=== PATIENT | female | born 1960 | race African-American/Black ===

== ENCOUNTER 2017-01-11 12:13 | Emergency (ER) | payer BC ==
[2017-01-11 12:19] VITALS: BP 150/80
--- NOTE | 2017-01-11 12:59 | ER Document Report ---
ED Neck/Back Problem - General Chief Complaint: Stiff Neck Stated Complaint: NECK PAIN Time seen by provider: 12:59 Notes: 56-year-old female presents to ED for some muscle spasms in her neck for week. She states she woke up 1 minute morning with a stiff neck and has not moved the neck very much due to the fact that it hurts. She says she has been trying to move at times. She has spasms now to her right shoulder. She denies any injury. She does have spasms in her back sometimes. She did take a 800 Motrin before coming to the emergency room. She is alert and oriented and very pleasant woman. When neck and back or massage patient has full range of motion of neck and shoulders. TRAVEL OUTSIDE OF THE [place] IN LAST 30 DAYS: No - HPI Patient complains to provider of: Neck Onset: Last week Where: Home Onset: Gradual Timing: Still present Quality of pain: Achy, Other - Past some Severity: Moderate Pain Level: 4 Recent injury: No Associated symptoms: Other - Muscle spasms to neck Exacerbated by: Movement of neck Relieved by: Nothing Similar symptoms previously: Yes Recently seen / treated by doctor: No - Related Data Allergies/Adverse Reactions: latex [Latex] Allergy (Unknown, Verified 01/11/17 12:16) morphine [Morphine] Allergy (Unknown, Verified 01/11/17 12:16) Past Medical History - General Information source: Patient - Social History Smoking Status: Never Smoker Chew tobacco use (# tins/day): No Frequency of alcohol use: None Drug Abuse: None Lives with: Family Family History: Arthritis, DM, Hypertension, Malignancy, Other - Kidneys. denies: CAD - CHF Patient has suicidal ideation: No Patient has homicidal ideation: No - Past Medical History Cardiac Medical History: Reports: Hx Hypercholesterolemia, Hx Hypertension Pulmonary Medical History: Reports: None EENT Medical History: Reports: None Neurological Medical History: Reports: None Endocrine Medical History: Reports: Hx Diabetes Mellitus Type 2 Renal/ Medical History: Reports: None Malignancy Medical History: Reports: None GI Medical History: Musculoskeltal Medical History: Reports Hx Arthritis, Reports Hx Muscle Spasm, Reports Hx Musculoskeletal Deformity, Reports Hx Musculoskeletal Trauma Psychiatric Medical History: Reports: None Traumatic Medical History: Reports: Hx Fractures - Legs ankles and by Infectious Medical History: Reports: None Past Surgical History: Reports: Hx Appendectomy, Hx Section, Hx Hysterectomy, Hx Orthopedic Surgery - bilateral legs, ankle, lap, Other - Retina surgery - Immunizations Immunizations up to date: Yes Review of Systems - Review of Systems Constitutional: No symptoms reported EENT: No symptoms reported Cardiovascular: No symptoms reported Respiratory: No symptoms reported Gastrointestinal: No symptoms reported Genitourinary: No symptoms reported Female Genitourinary: No symptoms reported Musculoskeletal: Muscle pain, Neck pain Skin: No symptoms reported Hematologic/Lymphatic: No symptoms reported Neurological/Psychological: No symptoms reported Physical Exam - Vital signs Vitals: Temp Pulse Resp BP Pulse Ox 98.5 F 81 21 H 150/80 H 100 01/11/17 12:17 01/11/17 12:17 01/11/17 12:17 01/11/17 12:17 01/11/17 12:17 Interpretation: Normal - General General appearance: Appears well, Alert - HEENT Head: Normocephalic, Atraumatic Eyes: Normal Pupils: PERRL Notes: Patient has stiff neck muscles to the right side of her neck as well as to her shoulder and upper back. She states that time she has muscle spasms. - Respiratory Respiratory status: No respiratory distress Chest status: Nontender Breath sounds: Normal Chest palpation: Normal - Cardiovascular Rhythm: Regular Heart sounds: Normal auscultation Murmur: No - Abdominal Inspection: Normal Distension: No distension Bowel sounds: Normal Tenderness: Nontender Organomegaly: No organomegaly - Back Back: Normal, Tender - Muscles of the neck. No: Deformity/step-off, CVA tenderness, Vertebra tenderness, Scars, Scoliosis, Wounds - Extremities General upper extremity: Normal inspection, Nontender, Normal color, Normal ROM , Normal temperature General lower extremity: Normal inspection, Nontender, Normal color, Normal ROM , Normal temperature, Normal weight bearing. No: Rogelio's sign - Neurological Neuro grossly intact: Yes Cognition: Normal Orientation: AAOx4 [place] Coma Scale Eye Opening: Spontaneous Coco Coma Scale Verbal: Oriented [place] Coma Scale Motor: Obeys Commands Coco Coma Scale Total: 15 Speech: Normal Motor strength normal: LUE, RUE, LLE, RLE Sensory: Normal - Psychological Associated symptoms: Normal affect, Normal mood - Skin Skin Temperature: Warm Skin Moisture: Dry Skin Color: Normal Course - Re-evaluation Re-evalutation: 01/11/17 13:18 We'll discharge home patient with a prescription for muscle relaxers instructions on use of ice and heat and instructions to follow-up with a masseuse to help her with her muscle tightness in tension. - Vital Signs Vital signs: Temp Pulse Resp BP Pulse Ox 98.5 F 82 21 H 150/80 H 100 01/11/17 12:33 01/11/17 12:33 01/11/17 12:33 01/11/17 12:33 01/11/17 12:33 Discharge - Discharge Clinical Impression: Neck pain, Myalgia Condition: Stable Disposition: HOME, SELF-CARE Additional Instructions: Myalagia (Muscle Pain) Myalgia is pain in the muscles. We use the word myalgia to describe muscle pain where there's no history of injury, no known muscle disease, and the muscles are normal to examination. Myalgias can be a symptom of an acute illness , such as influenza, hepatitis, or any viral illness, especially with fever. Sometimes the muscle pain comes before any other symptoms. Myalgia can also be an early symptom of inflammatory muscle disease, such as lupus. If myalgia is accompanied by an acute illness that explains the muscle pain , then no further testing needs to be done. When there's no clear reason for the pain, tests may be done to see if there's an inflammatory or other disease of the muscles. The usual treatment for myalgias is anti-inflammatory medication, such as ibuprofen. Muscle aches may be soothed with a heating pad or hot compress. If muscles remain painful for more than a few days, you'll need testing and followup. Return if a muscle becomes swollen, red, or severely painful. MUSCLE RELAXERS: Muscle relaxing medications are usually prescribed for acute muscle spasm or injury to the neck and back. They are often combined with antiinflammatory pain medication for increased relief. You may stop the muscle relaxer when the pain and stiffness have improved. Start the medication again if spasms recur. Muscle relaxers may cause drowsiness, especially with the first dose. Do not operate machinery or drive while under the effects of the medication. Most muscle relaxers last up to 24 hours. Do not combine the medication with alcohol. ICE PACKS: Apply ice packs frequently against the painful area. Many different schedules are recommended, such as "20 minutes on, 20 minutes off" or "one hour ice, two hours rest." If you need to work, you may need to go longer between ice treatments. You should plan to have the area ice packed AT LEAST one fourth of the time. The ice should be applied over the wrap, tape, or splint, or over a layer of cloth -- not directly against the skin. Some ice bags have a built-in cloth and can be put directly on the skin. WARM PACKS: After approximately two days, apply gentle heat (such as a heating pad or hot water bottle) for about 20 to 30 minutes about every two hours -- at least four times daily. Warmth and elevation will help you make a more rapid recovery , and will ease the pain considerably. Do not use HOT heat, and never apply heat for longer than 30 minutes. The continuous heat can invisibly damage skin and muscles -- even when no burn is seen on the surface. Damaged muscles can make you MORE sore. FOLLOW-UP CARE: If you have been referred to a physician for follow-up care, call the physician s office for an appointment as you were instructed or within the next two days. If you experience worsening or a significant change in your symptoms, notify the physician immediately or return to the Emergency Department at any time for re-evaluation. Prescriptions: Cyclobenzaprine HCl [Flexeril 10 mg Tablet] 10 mg PO BIDP PRN #14 tablet PRN Reason: Forms: Elevated Blood Pressure
== END 2017-01-11 13:55 | disposition home or self-care (01) ==
LOC: ER 12:13
DX: M54.2 Cervicalgia (principal); M62.838 Other muscle spasm; I10 Essential (primary) hypertension; E11.9 Type 2 diabetes mellitus without complications; Z91.040 Latex allergy status; Z88.5 Allergy status to narcotic agent
CPT/HCPCS: 99283

== ENCOUNTER → 2017-08-11 | Outpatient (CLI) | payer BC ==
--- NOTE | 2017-08-11 11:26 | WOMENS IMAGING REPORT ---
EXAM DESCRIPTION: 3D SCREENING MAMMO BILAT COMPLETED DATE/TIME: 08/11/2017 9:13 am REASON FOR STUDY: SCREENING MAMMO Z12.31 ENCNTR SCREEN MAMMOGRAM FOR MALIGNANT NEOPLASM OF JESSICA COMPARISON: 2008 - 2015 TECHNIQUE: Standard craniocaudal and mediolateral oblique views of each breast recorded using digita l acquisition and breast tomosynthesis. LIMITATIONS: None. FINDINGS: No masses, calcifications or architectural distortion. No areas of suspicion. Read with the assistance of CAD. .[facility] - R2 Cenova Version 1.3 .[facility] - R2 Cenova Version 1.3 .[facility] - R2 Cenova Version 2.4 .[facility] - R2 Cenova Version 2.4 .[facility] - R2 Guidance Adviser Version 9.2 IMPRESSION: NORMAL MAMMOGRAM. BIRADS 1. BREAST DENSITY: b. There are scattered areas of fibroglandular density. BIRAD: 1 NEGATIVE RECOMMENDATION: ROUTINE SCREENING COMMENT: The patient has been notified of the results by letter per SA requirements. Additional no tification policies are in place for contacting patient with suspicious or incomplete findings. Quality ID #225: The [employer] recommends an annual screening mammogram for women aged 40 years or over. This facility utilizes a reminder system to ensure that all patients receive reminder letters, and/or direct phone calls for appointments. This includes reminders for routine scr eening mammograms, diagnostic mammograms, or other Breast Imaging Interventions when appropriate. Th is patient will be placed in the appropriate reminder system. The [employer] (ACR) has developed recommendations for screening MRI of the breast s in certain patient populations, to be used in conjunction with mammography. Breast MRI surveillanc e may be appropriate for women with more than 20% lifetime risk of developing breast cancer as deter mined by genetic testing, significant family history of the disease, or history of mantle radiation f or Hodgkins Disease. ACR Practice Guidelines 2008. DBT Technology DBT is a type of tomographic mammography. With conventional mammography, overlapping breast tissue ma y make lesions difficult to detect, even with good compression. DBT uses an x-ray tube that rotates a round the breast, taking images at different angles. These images are then combined to create thin sl ices of the breast that the radiologist can view as a 3D reconstruction. The Atlas5D unit can perform full-field digital mammograms (2D imaging); or DBT (3D imaging); or both, in a combination mode that quickly performs both the mammogram and the tomosynthesis scan while the breast is still compressed. PQRS 6045F: Fluoroscopic imaging is not utilized for breast tomosynthesis. TECHNICAL DOCUMENTATION: FINDING NUMBER: (1) ASSESSMENT: (1) JOB ID: [id number] [employer]- All Rights Reserved
== END ==
LOC: WI 08:57
PROVIDERS: ATTEND Internal Medicine Geriatric Medicine
DX: Z12.31 Encounter for screening mammogram for malignant neoplasm of breast (principal)
CPT/HCPCS: 77063; G0202; 77067

== ENCOUNTER 2017-11-06 09:27 | Day surgery (SDC) | payer BC ==
[~2017-11-06 09:27] MED LIST: CHONDR SU A NA/HYALUR INTRAOC KIT (SURGICARE) ONE; EPINEPHRINE INJ/PF 1 MG/1 ML AMPULE ONE; KETOROLAC TROMETHAMINE 0.45% 4 DROP/0.4 ML DROPERETTE OD PRN; LIDOCAINE 1% INJ-PF (10 MG/ML) 30 ML SDV ONE
[2017-11-06] MEDS: BESIFLOXACIN HCL 0.6% OPH SUSP 5 ML BOTTLE OD PRN ×3 (09:40→10:35)
[2017-11-06] MEDS: TROPICAMIDE 1% OPH SOLN 3 ML OD PRN ×3 (09:40→10:00)
[2017-11-06] MEDS: CYCLOPENTOLATE 0.2%/PHENYLEPHRINE 1% OPH SOLN 2 ML OD PRN ×3 (09:40→10:00)
[2017-11-06] MEDS: TETRACAINE HCL 0.5% OPH SOLN 2 ML OD PRN ×3 (09:41→10:13)
[2017-11-06] MEDS ORDERED: MIDAZOLAM 2 MG/2 ML INJ ONE (10:00)
[2017-11-06] MEDS ORDERED: FENTANYL CITRATE INJ/PF 100 MCG/2 ML AMPUL ONE (10:00)
--- NOTE | 2017-11-06 21:34 | SURGICARE DISCHARGE SUMMARY E ---
[facility] Discharge Summary NAME: CHELSEA OSORIO AGE: 57Y ADMITTED: 11/06/2017 DISCHARGED: 11/06/2017 HOSPITAL COURSE: This is a 57-year-old female who underwent cataract extraction of the right eye. DIAGNOSIS: CATARACT, RIGHT EYE. She underwent surgery because she was having difficulty with glare from headlights. DISCHARGE INSTRUCTIONS: She should be on a regular diet. No bending at her waist, no heavy lifting. She should use Besivance, Ilevro, and Durezol at 3 p.m. and 8 p.m. and sleep with a rigid shield. I will see her for her 1 day postoperative tomorrow. DICTATING PHYSICIAN: AARON MAYORGA M.D. [id number] Y#: [id number] ID: [id number] JOB#: [id number] ACCT: [id number] cc:AARON MAYORGA M.D. >
--- NOTE | 2017-11-06 21:34 | [facility]ICARE OPERATIVE REPORT E ---
[facility] Operative Report NAME: CHELSEA OSORIO AGE: 57Y DATE OF SURGERY: 11/06/2017 ROOM: PREOPERATIVE DIAGNOSIS: CATARACT, RIGHT EYE. POSTOPERATIVE DIAGNOSIS: CATARACT, RIGHT EYE. OPERATION: Cataract extraction with intraocular lens implant of the right eye. SURGEON: AARON MAYORGA M.D. ANESTHESIA: Topical. PROCEDURE: After obtaining appropriate consent, the patient's right eye was prepped and draped in sterile fashion as well as the surgeon in a sterile manner and cataract surgery was started. First a paracentesis blade was used to make a small side-port incision. Viscoelastic was used to inflate the anterior chamber. Next a 2.4 mm incision was made with the paracentesis blade. A continuous capsulorrhexis incision was made using a cystotome and Utrata forceps. Following this hydrodissection was carried out to make the lens fully loose and mobile and it was rotated 90 degrees. Following this, a mrdktt-sym-olbvgcl technique was used to phacoemulsify the lens with a CDE of 7.25. The remaining cortex was removed with irrigation/aspiration. Provisc was instilled into the capsular bag to inflate the bag. A SN60WF, 20.0 diopter lens was placed. The remaining viscoelastic material was removed with irrigation/aspiration. Following this, a 10-0 nylon suture was used to close the incision and it was found to be watertight. Vigamox was instilled in the eye and a protective shield was placed over the eye. The patient returned to the postoperative recovery in stable condition. DICTATING PHYSICIAN: AARON MAYORGA M.D. [id number] PHY#: [id number] ID: [id number] JOB#: [id number] ACCT: [id number] cc:AARON MAYORGA M.D. >
== END 2017-11-06 11:16 | disposition home or self-care (01) ==
LOC: SC 09:27
PROVIDERS: ATTEND Internal Medicine
PROC: 08RJ3JZ Replacement of Right Lens with Synthetic Substitute, Percutaneous Approach (ICD-10-PCS; principal; 2017-11-06 10:00)
DX: H25.13 Age-related nuclear cataract, bilateral (principal); I10 Essential (primary) hypertension; K21.9 Gastro-esophageal reflux disease without esophagitis; E66.9 Obesity, unspecified; Z79.899 Other long term (current) drug therapy; Z68.31 Body mass index [BMI] 31.0-31.9, adult; Z79.82 Long term (current) use of aspirin
CPT/HCPCS: 66984; 82962; V2632; J2250; J3490 ×2; J0171; J3010; 142

== ENCOUNTER → 2018-08-13 | Outpatient (CLI) | payer BC ==
--- NOTE | 2018-08-13 10:10 | WOMENS IMAGING REPORT ---
EXAM DESCRIPTION: 3D SCREENING MAMMO BILAT COMPLETED DATE/TIME: 08/13/2018 9:35 am REASON FOR STUDY: BILATERAL SCREENING MAMMO 3D/Z12.31 Z12.31 ENCNTR SCREEN MAMMOGRAM FOR MALIGNANT NEOPLASM OF JESSICA COMPARISON: [id number] TECHNIQUE: Standard craniocaudal and mediolateral oblique views of each breast recorded using digita l acquisition and breast tomosynthesis. LIMITATIONS: None. FINDINGS: No masses, calcifications or architectural distortion. No areas of suspicion. Read with the assistance of CAD. .[facility] - R2 Cenova Version 1.3 .[facility] Imaging - R2 Cenova Version 1.3 .[facility] Imaging - R2 Cenova Version 2.4 .[facility] - R2 Cenova Version 2.4 .[facility] - R2 Obstetrics/Gynecology Nurse Version 9.2 IMPRESSION: NORMAL MAMMOGRAM. BIRADS 1. BREAST DENSITY: a. The breasts are almost entirely fatty. BIRAD: 1 NEGATIVE RECOMMENDATION: ROUTINE SCREENING COMMENT: The patient has been notified of the results by letter per SA requirements. Additional no tification policies are in place for contacting patient with suspicious or incomplete findings. Quality ID #225: The [employer] [place] [employer] [employer] recommends an annual screening mammogram for women aged 40 years or over. This facility utilizes a reminder system to ensure that all patients receive reminder letters, and/or direct phone calls for appointments. This includes reminders for routine scr eening mammograms, diagnostic mammograms, or other Breast Imaging Interventions when appropriate. Th is patient will be placed in the appropriate reminder system. The [place] [employer] (ACR) has developed recommendations for screening MRI of the breast s in certain patient populations, to be used in conjunction with mammography. Breast MRI surveillanc e may be appropriate for women with more than 20% lifetime risk of developing breast cancer as deter mined by genetic testing, significant family history of the disease, or history of mantle radiation f or Hodgkins Disease. ACR Practice Guidelines 2008. DBT Technology DBT is a type of tomographic mammography. With conventional mammography, overlapping breast tissue ma y make lesions difficult to detect, even with good compression. DBT uses an x-ray tube that rotates a round the breast, taking images at different angles. These images are then combined to create thin sl ices of the breast that the radiologist can view as a 3D reconstruction. The [employer] unit can perform full-field digital mammograms (2D imaging); or DBT (3D imaging); or both, in a combination mode that quickly performs both the mammogram and the tomosynthesis scan while the breast is still compressed. PQRS 6045F: Fluoroscopic imaging is not utilized for breast tomosynthesis. TECHNICAL DOCUMENTATION: FINDING NUMBER: (1) ASSESSMENT: (1) JOB ID: [id number] [employer]- All Rights Reserved Reading location - IP/workstation name: [email or web address]
== END ==
LOC: WI 08:56
PROVIDERS: ATTEND Internal Medicine Geriatric Medicine
DX: Z12.31 Encounter for screening mammogram for malignant neoplasm of breast (principal)
CPT/HCPCS: 77063; 77067

== ENCOUNTER → 2019-08-16 | Outpatient (CLI) | payer BC ==
--- NOTE | 2019-08-16 11:16 | WOMENS IMAGING REPORT ---
EXAM DESCRIPTION: 3D SCREENING MAMMO BILAT COMPLETED DATE/TIME: 08/16/2019 9:17 am REASON FOR STUDY: Z12.31 SCREENING MAMMO Z12.31 ENCNTR SCREEN MAMMOGRAM FOR MALIGNANT NEOPLASM OF B RE COMPARISON: [id number] EXAM PARAMETERS: Views: Standard craniocaudal and mediolateral oblique views of each breast recorded using digital acquisition and breast tomosynthesis. Read with the assistance of CAD. .[facility] - R2 Heel Attacher Version 9.2 LIMITATIONS: None. FINDINGS: No suspicious masses, suspicious calcifications or architectural distortion. No areas of c oncern. IMPRESSION: NEGATIVE MAMMOGRAM. BIRADS 1. BREAST DENSITY: b. There are scattered areas of fibroglandular density. BIRAD: ASSESSMENT: 1 NEGATIVE RECOMMENDATION: ROUTINE SCREENING COMMENT: The patient has been notified of the results by letter per MQSA requirements. Additional no tification policies are in place for contacting patient with suspicious or incomplete findings. Quality ID #225: The [employer] recommends an annual screening mammogram for women aged 40 years or over. This facility utilizes a reminder system to ensure that all patients receive reminder letters, and/or direct phone calls for appointments. This includes reminders for routine scr eening mammograms, diagnostic mammograms, or other Breast Imaging Interventions when appropriate. Th is patient will be placed in the appropriate reminder system. TECHNICAL DOCUMENTATION: FINDING NUMBER: (1) ASSESSMENT: (1) JOB ID: [id number] [employer]- All Rights Reserved Reading location - IP/workstation name: [email or web address]
== END ==
LOC: WI 09:00
PROVIDERS: ATTEND Internal Medicine Geriatric Medicine
DX: Z12.31 Encounter for screening mammogram for malignant neoplasm of breast (principal)
CPT/HCPCS: 77063; 77067

== ENCOUNTER → 2020-03-07 | Outpatient (CLI) | payer BC ==
--- NOTE | 2020-03-07 13:01 | RADIOLOGY REPORT (SQ) ---
EXAM DESCRIPTION: NM GASTRIC EMPTYING STUDY IMAGES COMPLETED DATE/TIME: 03/07/2020 12:11 pm REASON FOR STUDY: GASTROPARESIS (K31.84) K31.84 GASTROPARESIS COMPARISON: None. RADIONUCLIDE AND DOSE: 2 millicuries Tc-99m Sulfur Colloid. A wide variety of solid foods have been used. The route of agent administration: Oral. TECHNIQUE: 1 minute serial static imaging performed at time of meal, 1 hour, 2 hours, 3 hours, and 4 hours as needed. Once stomach reaches 90% emptying, the test is complete. Image intensity values pl otted with respect to time with linear regression algorithm. LIMITATIONS: None. FINDINGS: Patient was observed for 4 hours. Immediate post meal serves as baseline. Gastric emptying at 30 minutes was 10.4%. Gastric emptying at 60 minutes was 20.8% Gastric emptying at 90 minutes was 31.1%. Gastric emptying at 120 minutes was 41.5%. Gastric emptying at 240 minutes was 83%. Normal values: 60 minutes: 30-90% retained. If less than 30%, abnormally rapid emptying. If greater than 90%, delaye d gastric emptying. 120 minutes: <60% retained. If greater than 60%, delayed gastric emptying. 240 minutes: <10% retained. If greater than 10%, delayed gastric emptying. IMPRESSION: Delayed gastric emptying. TECHNICAL DOCUMENTATION: JOB ID: [id number] 2010 [employer]- All Rights Reserved rev-02/27 Reading location - IP/workstation name: [email or web address]
== END ==
LOC: RAD 07:21
PROVIDERS: ATTEND Internal Medicine Gastroenterology
DX: K31.84 Gastroparesis (principal)
CPT/HCPCS: 78264; A9541

== ENCOUNTER 2020-08-23 10:24 | Emergency (ER) | payer BC ==
--- NOTE | 2020-08-23 11:28 | ER Document Report ---
ED Medical Screen (RME) - General Chief Complaint: Dizziness Stated Complaint: BLOOD PRESSURE PROBLEM Time Seen by Provider: 08/23/20 11:24 Primary Care Provider: BERTA CORREA MD [Primary Care Provider] - Follow up as needed Mode of Arrival: Wheelchair Information source: Patient Notes: 60-year-old female presents to ED for dizziness. She did have a bulging eardrum on her last doctor visit. She went back to the doctor today the bulging eardrum was better but she had a very elevated blood pressure. She states she was also dizzy. She states she is been dizzy about a week. She states she is taking all the one of her antibiotics states she has not yet seen an ENT. Will get blood urine chest x-ray and EKG. 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 Also get an Accu-Chek. States her CABG was in the end of December 09, 2019. I have greeted and performed a rapid initial assessment of this patient. A comprehensive ED assessment and evaluation of the patient, analysis of test results and completion of medical decision making process will be conducted by an additional ED providers. TRAVEL OUTSIDE OF THE [place] IN LAST 30 DAYS: No - Related Data Allergies/Adverse Reactions: morphine [Morphine] Allergy (Intermediate, Verified 08/23/20 11:19) AGITIATION latex [Latex] Allergy (Unknown, Verified 08/23/20 11:19) Past Medical History - Past Medical History Cardiac Medical History: Reports: Hx Hypercholesterolemia, Hx Hypertension Denies: Hx Heart Attack Pulmonary Medical History: Denies: Hx Asthma Neurological Medical History: Denies: Hx Cerebrovascular Accident, Hx Seizures Endocrine Medical History: Reports: Hx Diabetes Mellitus Type 2 Renal/ Medical History: Denies: Hx Peritoneal Dialysis GI Medical History: Denies: Hx Hepatitis, Hx Hiatal Hernia, Hx Ulcer Musculoskeltal Medical History: Reports Hx Arthritis, Reports Hx Muscle Spasm, Reports Hx Musculoskeletal Deformity, Reports Hx Musculoskeletal Trauma Traumatic Medical History: Reports: Hx Fractures - Legs ankles and by Infectious Medical History: Denies: Hx Hepatitis Past Surgical History: Reports: Hx Appendectomy, Hx Section, Hx Hysterectomy, Hx Orthopedic Surgery - bilateral legs, ankle, lap, Other - Retina surgery. Denies: Hx Mastectomy, Hx Open Heart Surgery, Hx Pacemaker - Immunizations Immunizations up to date: Yes Physical Exam - Vital signs Vitals: Temp Pulse Resp BP Pulse Ox 98.0 F 72 20 182/83 H 100 08/23/20 10:39 08/23/20 10:39 08/23/20 10:39 08/23/20 10:39 08/23/20 10:39 Course - Vital Signs Vital signs: Temp Pulse Resp BP Pulse Ox 98.0 F 72 20 182/83 H 100 08/23/20 10:39 08/23/20 10:39 08/23/20 10:39 08/23/20 10:39 08/23/20 10:39 Doctor's Discharge - Discharge Referrals: BERTA CORREA MD [Primary Care Provider] - Follow up as needed
[2020-08-23 11:57] LABS: ABSOLUTE BASOPHILS # (AUTO) 0.1 10^3/uL (0.0-0.2); ABSOLUTE EOSINOPHILS # (AUTO) 0.3 10^3/uL (0.0-0.6); ABSOLUTE LYMPHOCYTES (AUTO) 2.8 10^3/uL (0.5-4.7); ABSOLUTE MONOCYTES (AUTO) 0.6 10^3/uL (0.1-1.4); ABSOLUTE NEUT (AUTO) 5.4 10^3/uL (1.7-8.2); BASOPHILS % (AUTO) 0.7 % (0-2); EOSINOPHILS % (AUTO) 2.8 % (0-6); HEMOGLOBIN 12.8 g/dL (12.0-15.5); LYMPHOCYTES % (AUTO) 30.3 % (13-45); MEAN CORPUSCULAR HEMOGLOBIN 28.6 pg (27.0-33.4); MEAN CORPUSCULAR HGB CONC 34.7 g/dL (32.0-36.0); MEAN CORPUSCULAR VOLUME 83 fl (80-97); MONOCYTES % (AUTO) 6.9 % (3-13); PLATELET COUNT 304 10^3/uL (150-450); RED BLOOD COUNT 4.48 10^6/uL (3.72-5.28); SEGMENTED NEUTROPHILS % (AUTO) 59.3 % (42-78); TOTAL CELLS COUNTED % (AUTO) 100 %; WHITE BLOOD COUNT 9.2 10^3/uL (4.0-10.5)
[2020-08-23 12:18] LABS: ALBUMIN 3.8 g/dL (3.5-5.0); ALKALINE PHOSPHATASE 472 U/L (38-126); ANION GAP 8 (5-19); ASPARTATE AMINO TRANSFERASE 79 U/L (14-36); BILIRUBIN,DIRECT 0.1 mg/dL (0.0-0.4); BILIRUBIN,TOTAL 0.5 mg/dL (0.2-1.3); BLOOD UREA NITROGEN 14 mg/dL (7-20); CALCIUM 9.8 mg/dL (8.4-10.2); CARBON DIOXIDE 31 mmol/L (22-30); CHLORIDE 104 mmol/L (98-107); GLUCOSE 77 mg/dL (75-110); POTASSIUM 5.1 mmol/L (3.6-5.0); TOTAL PROTEIN 6.5 g/dL (6.3-8.2)
--- NOTE | 2020-08-23 12:56 | RADIOLOGY REPORT (SQ) ---
EXAM DESCRIPTION: CHEST 2 VIEWS IMAGES COMPLETED DATE/TIME: 08/23/2020 12:31 pm REASON FOR STUDY: Dizziness COMPARISON: 03/04/2013 EXAM PARAMETERS: NUMBER OF VIEWS: two views TECHNIQUE: Digital Frontal and Lateral radiographic views of the chest acquired. RADIATION DOSE: NA LIMITATIONS: none FINDINGS: LUNGS AND PLEURA: No opacities, masses or pneumothorax. No pleural effusion. MEDIASTINUM AND HILAR STRUCTURES: No masses or contour abnormalities. HEART AND VASCULAR STRUCTURES: Heart normal size. No evidence for failure. BONES: No acute findings. HARDWARE: Sternotomy wires are in place. OTHER: No other significant finding. IMPRESSION: NO ACUTE RADIOGRAPHIC FINDING IN THE CHEST. TECHNICAL DOCUMENTATION: JOB ID: [id number] 2010 [employer]- All Rights Reserved Reading location - IP/workstation name: [email or web address]
--- NOTE | 2020-08-23 13:42 | ER Document Report ---
ED General - General Chief Complaint: Dizziness Stated Complaint: BLOOD PRESSURE PROBLEM Time Seen by Provider: 08/23/20 11:24 Primary Care Provider: BERTA CORREA MD [Primary Care Provider] - Follow up as needed Mode of Arrival: Wheelchair TRAVEL OUTSIDE OF THE [place] IN LAST 30 DAYS: No - HPI Notes: 60-year-old female presents with dizziness ongoing for the past week. Patient states she was recently diagnosed with an ear infection, she was started on Augmentin, today's last day of her antibiotic. She went back to the PCP for follow-up, she was told that the ear infection had improved, however she was hypertensive. Patient states her blood pressure was 196/93 and then a repeat it was in the 180s, therefore she was sent to the emergency department also given the fact she has had dizziness. Patient states that she has been having dizzine ss for 1 week, is mostly when she attempts to get up and stand or walk. Patient states that she has had several episodes where she has started to fall to the right side. She is always able to catch herself or her catcher, she has not had a fall. She states she has had vertigo in the past and this is definitely a different sensation. No known history of stroke. She has intermittently had headaches as well. Last episode of dizziness was this morning. Also a few days ago had a transient episode of left hand numbness. Patient is currently feeling well. She reports compliance with her antihypertensive. 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 She takes 81 mg aspirin daily, no other blood thinners. - Related Data Allergies/Adverse Reactions: morphine [Morphine] Allergy (Intermediate, Verified 08/23/20 11:19) AGITIATION latex [Latex] Allergy (Unknown, Verified 08/23/20 11:19) Home Medications: amox. tresiba. trulicity. dorzolamide. dorzol/timol. b-d rony. metoprolol Past Medical History - General Information source: Patient - Social History Smoking Status: Never Smoker Chew tobacco use (# tins/day): No Frequency of alcohol use: None Family History: Arthritis, DM, Hypertension, Malignancy, Other Patient has homicidal ideation: No - Past Medical History Cardiac Medical History: Reports: Hx Hypercholesterolemia, Hx Hypertension Denies: Hx Heart Attack Pulmonary Medical History: Denies: Hx Asthma Neurological Medical History: Denies: Hx Cerebrovascular Accident, Hx Seizures Endocrine Medical History: Reports: Hx Diabetes Mellitus Type 2 Renal/ Medical History: Denies: Hx Peritoneal Dialysis GI Medical History: Denies: Hx Hepatitis, Hx Hiatal Hernia, Hx Ulcer Musculoskeletal Medical History: Reports Hx Arthritis, Reports Hx Muscle Spasm, Reports Hx Musculoskeletal Deformity, Reports Hx Musculoskeletal Trauma Traumatic Medical History: Reports: Hx Fractures - Legs ankles and by Infectious Medical History: Denies: Hx Hepatitis Past Surgical History: Reports: Hx Appendectomy, Hx Section, Hx Hysterectomy, Hx Orthopedic Surgery - bilateral legs, ankle, lap, Other - Retina surgery. Denies: Hx Mastectomy, Hx Open Heart Surgery, Hx Pacemaker - Immunizations Immunizations up to date: Yes Review of Systems - Review of Systems Constitutional: denies: Fever EENT: denies: Blurred vision Cardiovascular: denies: Chest pain Respiratory: denies: Short of breath Gastrointestinal: No symptoms reported Genitourinary: No symptoms reported Female Genitourinary: No symptoms reported Musculoskeletal: No symptoms reported Skin: No symptoms reported Hematologic/Lymphatic: No symptoms reported Neurological/Psychological: See HPI Physical Exam - Vital signs Vitals: Temp Pulse Resp BP Pulse Ox 98.0 F 72 20 182/83 H 100 08/23/20 10:39 08/23/20 10:39 08/23/20 10:39 08/23/20 10:39 08/23/20 10:39 - General General appearance: Appears well, Alert In distress: None - HEENT Head: Normocephalic, Atraumatic Extraocular movements intact: Yes Pupils: PERRL Tympanic membrane: Other - There is some opacification of the right TM, no eryt nafisa or bulging Mucous membranes: Moist Neck: Supple - Respiratory Breath sounds: Normal - Cardiovascular Rhythm: Regular Heart sounds: Normal auscultation - Abdominal Tenderness: Nontender - Extremities General upper extremity: Normal ROM General lower extremity: Normal ROM. No: Edema - Neurological Neuro grossly intact: Yes Cognition: Normal Orientation: AAOx4 Notes: Face is symmetric and speech is clear, tongue protrudes midline, cranial nerves II through XII grossly intact. Strength is 5/5 in the upper extremities, no pronator drift bilaterally. Strength is 5/5 in the lower extremities, no drift bilaterally. Coordination is grossly intact. Sensation is intact to all extremities. NIHSS 0 - Psychological Associated symptoms: Normal affect - Skin Skin Temperature: Warm Course - Re-evaluation Re-evalutation: 60-year-old female here with dizziness x1 week. Patient recently diagnosed with an ear infection, has essentially completed a course of Augmentin. Seen by her primary care doctor today for follow-up and was noted to be hypertensive, also reference dizziness. Has had episodes of dizziness when standing or attempting to stand, states she will fall to the right side each time, had a brief episode a few days ago of left hand numbness. She currently is neurologically intact, no focal deficits, NIHSS 0. Has risk factors for CVA, have ordered CT head to evaluate for subacute infarct. Discussed with patient possibly could related to her ear infection given the temporal relationship of these symptoms. Hypertensive, history of this, voices no other cardiopulmonary complaints. 08/23/20 14:58 CT head regular for no acute finding, have ordered MRI to get a better look at the posterior elements of brain 08/23/20 15:12 Patient updated on plan for MRI, she continues to be well-appearing and without complaints, neurologically intact 08/23/20 16:50 MRI is negative for stroke 08/23/20 16:56 Patient was updated on all results. Continues to be well-appearing and without complaints. Encouraged her to have close primary care follow-up. Return precau tions given, stable at time of discharge. - Vital Signs Vital signs: Temp Pulse Resp BP Pulse Ox 98.0 F 72 16 187/82 H 98 08/23/20 11:19 08/23/20 10:39 08/23/20 14:00 08/23/20 14:01 08/23/20 14:01 - Laboratory Result Diagrams: 08/23/20 11:45 08/23/20 11:45 Laboratory results interpreted by me: 08/23/20 08/23/20 08/23/20 11:45 11:45 13:22 RDW 15.0 H Potassium 5.1 H Carbon Dioxide 31 H AST 79 H ALT 80 H Alkaline Phosphatase 472 H Urine Protein 100 H Urine Ascorbic Acid 40 H - Diagnostic Test Radiology reviewed: Image reviewed, Reports reviewed Discharge - Discharge Clinical Impression: Dizziness on standing, Essential hypertension Disposition: HOME, SELF-CARE Instructions: Dizziness ([facility]) Additional Instructions: Please have close follow-up with your primary care doctor. Continue all medications as prescribed. Return to the emergency department any concerning worsening symptoms. Referrals: BERTA CORREA MD [Primary Care Provider] - Follow up as needed
[2020-08-23 13:50] LABS: APPEARANCE,URINE CLEAR; BILIRUBIN,URINE NEGATIVE (NEGATIVE); COLOR,URINE YELLOW; GLUCOSE, URINE NEGATIVE (NEGATIVE); KETONES,URINE NEGATIVE (NEGATIVE); LEUKOCYTE ESTERASE,URINE NEGATIVE (NEGATIVE); NITRITE,URINE NEGATIVE (NEGATIVE); PROTEIN,URINE 100 mg/dL (NEGATIVE); URINE SPECIFIC GRAVITY 1.013; UROBILINOGEN,URINE NEGATIVE mg/dL (<2.0)
--- NOTE | 2020-08-23 14:52 | RADIOLOGY REPORT (SQ) ---
EXAM DESCRIPTION: CT HEAD WITHOUT IMAGES COMPLETED DATE/TIME: 08/23/2020 2:37 pm REASON FOR STUDY: dizzy/falling to R side x1w, eval subacute cva COMPARISON: 02/21/2010 TECHNIQUE: Axial images acquired through the brain without intravenous contrast. Images reviewed wi th bone, brain and subdural windows. Additional sagittal and coronal reconstructions were generated. Images stored on PACS. All CT scanners at this facility use dose modulation, iterative reconstruction, and/or weight based d osing when appropriate to reduce radiation dose to as low as reasonably achievable (ALARA). [facility]: Dose Right [facility]: CareDose [facility]: Dose Right [facility]: Teradose 4D [facility]: [employer] RADIATION DOSE: CT Rad equipment meets quality standard of care and radiation dose reduction techniq ues were employed. CTDIvol: 53.2 mGy. DLP: 1044 mGy-cm. mGy. LIMITATIONS: None. FINDINGS: VENTRICLES: Normal size and contour. CEREBRUM: No masses. No hemorrhage. No midline shift. No evidence for acute infarction. Normal gra y/white matter differentiation. No areas of low density in the white matter. CEREBELLUM: No masses. No hemorrhage. No alteration of density. No evidence for acute infarction. EXTRAAXIAL SPACES: No fluid collections. No masses. ORBITS AND GLOBE: No intra- or extraconal masses. Normal contour of globe without masses. CALVARIUM: No fracture. PARANASAL SINUSES: No fluid or mucosal thickening. SOFT TISSUES: No mass or hematoma. OTHER: No other significant finding. IMPRESSION: NORMAL BRAIN CT WITHOUT CONTRAST. EVIDENCE OF ACUTE STROKE: NO. COMMENT: Quality ID # [id number]: Final reports with documentation of one or more dose reduction techniques (e.g., Automated exposure control, adjustment of the mA and/or kV according to patient size, use of iterative reconstruction technique) TECHNICAL DOCUMENTATION: JOB ID: [id number] 2010 [employer]- All Rights Reserved Reading location - IP/workstation name: [email or web address]
--- NOTE | 2020-08-23 16:20 | RADIOLOGY REPORT (SQ) ---
EXAM DESCRIPTION: MRI HEAD WITHOUT IMAGES COMPLETED DATE/TIME: 08/23/2020 4:05 pm REASON FOR STUDY: dizziness, falling to R x1w, eval CVA COMPARISON: MRI DATED 02/21/2010, CT DATED 08/23/2020 TECHNIQUE: Multiplanar imaging includes non-contrasted T1, T2, FLAIR, and diffusion with ADC map seq uences. Images stored on PACS. LIMITATIONS: None. FINDINGS: ANATOMY: No anomalies. Normal vascular flow voids. Pituitary fossa normal. CSF SPACES: Normal in size and contour. No hemorrhage. CEREBRUM: Sulci and gyri normal in size and contour. Normal white matter signal on FLAIR imaging. No evidence of hemorrhage, mass, or extraaxial fluid collection. POSTERIOR FOSSA: No signal alteration. No hemorrhage. No edema, masses or mass effect. Internal digna tory canals, cerebello-pontine angles, mastoids normal. DIFFUSION IMAGING: Negative for acute or sub-acute infarction. ORBITS: No masses. Globes normal. PARANASAL SINUSES: No fluid levels. Mucosa normal. OTHER: No other significant finding. IMPRESSION: AGE-APPROPRIATE MRI OF THE BRAIN WITHOUT CONTRAST. NO ACUTE INTRACRANIAL EVENT. EVIDENCE OF ACUTE STROKE: NO. TECHNICAL DOCUMENTATION: JOB ID: [id number] 2010 [employer]- All Rights Reserved Reading location - IP/workstation name: [email or web address]
[2020-08-23 17:27] VITALS: BP 171/89
--- NOTE | 2020-08-23 18:03 | EKG REPORT ---
SEVERITY:- NORMAL ECG - SINUS RHYTHM : Confirmed by: Camilla Parra 23-Aug-2020 18:02:17
--- OUTSIDE RECORDS SUMMARY | 2020-08-25 14:38 | XMS REPORT ---
:1960 [facility] Address [facility] [place] [address] [place] [address] Care Team Providers Name Role Phone Justicecinthia Slim Primary Care Physician Unavailable Aneta LOFTON Attending Clinician Unavailable Elza Monge Attending Clinician Unavailable Elza Monge Attending Clinician Unavailable MD Mark Villarreal Attending Clinician Unavailable MD Mark Villarreal Attending Clinician Unavailable MD Mark Villarreal Admitting Clinician Unavailable MD Kendrick Admitting Clinician Unavailable Allergies, Adverse Reactions, Alerts Allergy Name Allergy Status Severity Reaction(s) Onset Inactive Treat ing Comments Type Date Date Clinician Latex Allergy to Active Mild Other substance Morphine Allergy to Active Mild to Angioedema substance moderate Morphine Morphine Active Derivatives Derivatives Medications Ordered Filled Start Stop Current Ordering Indication Dosage Frequency Signature Comments Components Medication Medication Date Date Medication? Clinician (SIG) Name Name Ezetimibe 2019-0 No Evan 1 Ezetimibe 10 MG Oral 5-21 Aneta LOFTON 10 MG Oral Tablet 00:00: Tablet 00 TAKE 1 TABLET AT BEDTIME. Quantity: 30 Refills: 2 Evan Cornell MD Start : 0Active Ezetimibe 2020-0 No Vean 1 Ezetimibe 10 MG Oral 5-21 Aneta LOFTON 10 MG Oral Tablet 00:00: Tablet 00 TAKE 1 TABLET AT BEDTIME. Quantity: 90 Refills: 2 Evan Cornell MD Start : 0Active Ezetimibe 2020-0 Yes Evan 1 Ezetimibe 10 MG Oral 5-21 Aneta LOFTON 10 MG Oral Tablet 00:00: Tablet 00 TAKE 1 TABLET AT BEDTIME. Quantity: 90 Refills: 2 Evan Cornell MD Start : 0Active Metoprolol 2019-0 Yes Evan 1 QD Metoprolol Succinate 4-21 Aneta LOFTON Succinate ER 100 MG 00:00: ER 100 MG Oral Tablet 00 Oral Extended Tablet Release 24 Extended Hour Release 24 Hour TAKE 1 TABLET DAILY. Quantity: 180 Refills: 3 Evan Cornell MD Start : 0Active Metoprolol 2020-0 No Evan 1 QD Metoprolol Succinate - Aneta LOFTON Succinate ER 100 MG 00:00: ER 100 MG Oral Tablet 00 Oral Extended Tablet Release 24 Extended Hour Release 24 Hour TAKE 1 TABLET DAILY. Quantity: 30 Refills: 2 Evan Cornell MD Start : 0Active Vitamin C 2020-0 Yes Vitamin C 500 MG Oral 3-17 500 MG Tablet 00:00: Oral 00 Tablet TK 1 T PO QD Quantity: 100 Refills: 0 Start : 0Active FreeStyle 2019-0 Yes FreeStyle Lite Test 3- Lite Test In Vitro 00:00: In Vitro Strip 00 Strip USE TO TEST GLUCOSE TID Quantity: 100 Refills: 0 Start : 0Active Losartan 2019-0 Yes Evan Losartan Potassium 3- Aneta LOFTON Potassium 50 MG Oral 00:00: 50 MG Oral Tablet 00 Tablet TAKE 1 TABLET BY MOUTH TWICE A DAY Quantity: 180 Refills: 3 Evan Cornell MD Start : 13-Dec-2019 Active Losartan 2019-0 No Evan Losartan Potassium 3- Aneta LOFTON Potassium 25 MG Oral 00:00: 25 MG Oral Tablet 00 Tablet TAKE ONE TABLET BY MOUTH EVERY DAY Quantity: 90 Refills: 3 Evan Cornell MD Start : 13-Dec-2019 Active Atorvastati 2019-0 Yes Evan Atorvastat n Calcium 3- Aneta LOFTON in Calcium 40 MG Oral 00:00: 40 MG Oral Tablet 00 Tablet TAKE 1 TABLET AT BEDTIME. Quantity: 90 Refills: 2 Evan Cornell MD Start : 13-Dec-2019 Active Iron 2019-0 Yes Iron High-Potenc 3-02 High-Poten y 325 MG 00:00: cy 325 MG Oral Tablet 00 Oral Tablet TK 1 T PO BID WITH MEALS Quantity: 60 Refills: 0 Start : 13-Dec-2019 Active Stool 2019-0 Yes Stool Softener 3-02 Softener 100 MG Oral 00:00: 100 MG Capsule 00 Oral Capsule TK 1 C PO BID Quantity: 60 Refills: 0 Start : 13-Dec-2019 Active Losartan 2019-0 No Evan 1 Q0.5D Losartan Potassium 3-02 Aneta LOFTON Potassium 25 MG Oral 00:00: 25 MG Oral Tablet 00 Tablet TAKE 1 TABLET TWICE DAILY Quantity: 60 Refills: 2 Aneta LOFTON, Evan Start : 13-Dec-2019 Active Aspirin 2019-0 Yes QD Aspirin Adult Low 2-10 Adult Low Dose 81 MG 00:00: Dose 81 MG Oral Tablet 00 Oral Delayed Tablet Release Delayed Release TAKE 1 TABLET DAILY DIRECTED. Refills: 0 Start : 0Active Ergocalcife 2019-0 Yes Ergocalcif rol 1.25 MG 2-10 el 1.25 (04974 UT) 00:00: MG (82436 Oral 00 UT) Oral Capsule Capsule TAKE 1 CAPSULE WEEKLY. Refills: 0 Start : 0Active Kombiglyze 2019-0 Yes 2 QD Kombiglyze XR 2.5-1000 2-10 XR MG Oral 00:00: 2.5-1000 Tablet 00 MG Oral Extended Tablet Release 24 Extended Hour Release 24 Hour TAKE 2 TABLET DAILY Refills: 0 Start : 0Active Latanoprost 0 Yes Latanopros 0.005 % 2-10 t 0.005 % Ophthalmic 00:00: Ophthalmic Solution 00 Solution Refills: 0 Start : 0Active 2.5 ML Bottle NovoLOG 0 No 0 NovoLOG FlexPen 100 2-10 FlexPen UNIT/ML 00:00: 100 Subcutaneou 00 UNIT/ML s Solution Subcutaneo Pen-injecto us r Solution Pen-inject or USE DIRECTED. Refills: 0 ,,, Start : 0Active 5 x 3 ML Pen Osteo 2019-0 Yes 1 Q0.5D Osteo Bi-Flex One 2-10 Bi-Flex Per Day 00:00: One Per Oral Tablet 00 Day Oral Tablet TAKE 1 TABLET TWICE DAILY Refills: 0 Start : 0Active Tresiba 2019-0 Yes 44 Tresiba FlexTouch 2-10 FlexTouch 200 UNIT/ML 00:00: 200 Subcutaneou 00 UNIT/ML s Solution Subcutaneo Pen-injecto us r Solution Pen-inject or INJECT 44 UNIT Refills: 0 Start : 0Active 3 x 3 ML Pen Trulicity Yes Trulicity 0.75 2-10 0.75 MG/0.5ML 00:00: MG/0.5ML Subcutaneou 00 Subcutaneo s Solution us Pen-injecto Solution r Pen-inject or Refills: 0 Start : 0Active 0.5 ML Pen Womens 50+ 2019- Yes 1 QD Womens 50+ Multi 2-10 Multi Vitamin/Min 00:00: Vitamin/Mi Oral Tablet 00 n Oral Tablet TAKE 1 TABLET DAILY. Refills: 0 Start : 0Active Timolol Yes Timolol Maleate 0.5 2-10 Maleate % (DAILY) 00:00: 0.5 % Ophthalmic 00 (DAILY) Solution Ophthalmic Solution Refills: 0 Start : 0Active 2.5 ML Bottle BD Pen Yes BD Pen Needle Emma 6-25 Needle U/F 32G X 4 00:00: Emma U/F MM 00 32G X 4 MM USE TO INJECT INSULIN BID Quantity: 100 Refills: 0 Start : 9Active Omeprazole Yes 1 QD Omeprazole 40 MG Oral 6-11 40 MG Oral Capsule 00:00: Capsule Delayed 00 Delayed Release Release TAKE 1 CAPSULE DAILY Refills: 0 Start : 9Active aspirin 81 No 1 Q1D aspirin 81 mg 3-02 mg tablet,devorah 00:00: tablet,del yed release 00 ayed Take 1 release tablet Take 1 every day tablet by oral every day route for by oral 30 days. route for 30 days. clotrimazol No clotrimazo e-betametha le-betamet sone 1 hasone 1 %-0.05 % %-0.05 % topical topical cream APPLY cream TO AFFECTED APPLY TO AREA(S) AFFECTED TWICE DAILY AREA(S) TWICE DAILY ergocalcife No 1capsul ergocalcif rol e(s) el (vitamin (vitamin D2) 1,250 D2) 1,250 mcg (50,000 mcg unit) (50,000 capsule unit) Take 1 capsule capsule Take 1 every month capsule by oral every route. month by oral route. hydrochloro No hydrochlor thiazide 25 othiazide mg tablet 25 mg TAKE 1 tablet TABLET BY TAKE 1 MOUTH EVERY TABLET BY DAY MOUTH EVERY DAY Kombiglyze No 2 Q1D Kombiglyze XR 2.5 XR 2.5 mg-1,000 mg mg-1,000 tablet,exte mg nded tablet,ext release ended take 2 release tablets by take 2 oral route tablets by daily oral route daily latanoprost No latanopros 0.005 % eye t 0.005 % drops eye drops instill 1 instill 1 drop into drop into ou twice a ou twice a day day metoprolol No metoprolol succinate succinate ER 25 mg ER 25 mg tablet,exte tablet,ext nded ended release 24 release 24 hr TAKE 1 hr TAKE 1 TABLET BY TABLET BY MOUTH EVERY MOUTH DAY EVERY DAY mupirocin 2 No mupirocin % topical 2 % ointment topical ointment Novolog No Novolog Flexpen Flexpen U-100 U-100 Insulin Insulin aspart 100 aspart 100 unit/mL (3 unit/mL (3 mL) mL) subcutaneou subcutaneo s sc units us sc per sliding units per scale Qac sliding & HS scale Qac (max dose & HS 40units per (max dose day) 40units per day) omeprazole No omeprazole 40 mg 40 mg capsule,del capsule,de ayed layed release release TAKE ONE TAKE ONE CAPSULE BY CAPSULE BY MOUTH EVERY MOUTH DAY EVERY DAY simvastatin No simvastati 20 mg n 20 mg tablet TAKE tablet 1 TABLET BY TAKE 1 MOUTH EVERY TABLET BY EVENING MOUTH WITH DINNER EVERY EVENING WITH DINNER telmisartan No telmisarta 40 n 40 mg-amlodipi mg-amlodip ne 5 mg ine 5 mg tablet TAKE tablet 1 TABLET BY TAKE 1 MOUTH EVERY TABLET BY DAY MOUTH EVERY DAY Tresiba No 52unit( Q1D Tresiba FlexTouch s) FlexTouch U-200 U-200 insulin 200 insulin unit/mL (3 200 mL) unit/mL (3 subcutaneou mL) s pen subcutaneo INJECT 52 us pen UNITS UNDER INJECT 52 THE SKIN QD UNITS UNDER THE SKIN QD Trulicity No Trulicity 0.75 mg/0.5 0.75 mL mg/0.5 mL subcutaneou subcutaneo s pen us pen injector injector INJ 0.5 ML INJ 0.5 ML SC ONCE Q SC ONCE Q WK WK ranitidine No 1 Q24H ranitidine 300 mg 300 mg tablet tablet every 24 every 24 hours by hours by oral route. oral route. carisoprodo No 1 TID carisoprod l 350 mg ol 350 mg tablet Take tablet 1 tablet 3 Take 1 times a day tablet 3 by oral times a route as day by needed. oral route as needed. Dexilant 60 No 1capsul Q1D Dexilant mg capsule, e(s) 60 mg delayed capsule, release delayed Take 1 release capsule Take 1 every day capsule by oral every day route for by oral 30 days. route for 30 days. Eucrisa 2 % No Eucrisa 2 topical % topical ointment ointment APPLY A APPLY A THIN LAYER THIN LAYER TO THE TO THE AFFECTED AFFECTED AREA(S) BY AREA(S) BY TOPICAL TOPICAL ROUTE 2 ROUTE 2 TIMES PER TIMES PER DAY DAY fluticasone No fluticason propionate e 50 propionate mcg/actuati 50 on nasal mcg/actuat spray,suspe ion nasal nsion Use 2 spray,susp sprays per ension Use nostrum 2 sprays daily per nostrum daily amoxicillin No amoxicilli 500 mg n 500 mg capsule capsule azithromyci No azithromyc n 250 mg in 250 mg tablet tablet metronidazo No metronidaz le 500 mg ole 500 mg tablet tablet omeprazole No omeprazole 20 mg 20 mg capsule,del capsule,de ayed layed release release Take 1 Take 1 capsule capsule every day every day by oral by oral route for route for 90 days. 90 days. timolol No timolol maleate 0.5 maleate % eye drops 0.5 % eye instill 1 drops drop ou instill 1 twice a day drop ou twice a day aspirin 325 No 1 Q1D aspirin mg 325 mg tablet,devorah tablet,del yed release ayed Take 1 release tablet Take 1 every day tablet by oral every day route. by oral route. atorvastati No 1 Q1D atorvastat n 40 mg in 40 mg tablet TK 1 tablet TK T PO HS 1 T PO HS Augmentin No 1 Q12H Augmentin 875 mg-125 875 mg-125 mg tablet mg tablet Take 1 Take 1 tablet tablet every 12 every 12 hours by hours by oral route. oral route. Colace 100 No 1capsul BID Colace 100 mg capsule e(s) mg capsule Take 1 Take 1 capsule capsule twice a day twice a by oral day by route. oral route. ferrous No 1 BID ferrous sulfate 325 sulfate mg (65 mg 325 mg (65 iron) mg iron) tablet take tablet 1 tablet by take 1 oral route tablet by daily with oral route meal daily with meal losartan 25 No 1 Q1D losartan mg tablet 25 mg take 1 tablet tablet by take 1 oral route tablet by daily oral route daily metoprolol No 1 BID metoprolol tartrate 50 tartrate mg tablet 50 mg tablet Novolog No Novolog Flexpen Flexpen U-100 U-100 Insulin AC Insulin AC & HS & HS /sliding /sliding scale (Max scale (Max Dose per Dose per Day Day 40units) 40units) tramadol 50 No tramadol mg tablet 50 mg TAKE 1-2 tablet TABLETS BY TAKE 1-2 ORAL ROUTE TABLETS BY Q4HRS PRN ORAL ROUTE Q4HRS PRN acetaminoph No 2 Q4H acetaminop en 325 mg hen 325 mg tablet Take tablet 2 tablets Take 2 every 4 tablets hours by every 4 oral route hours by as needed. oral route as needed. Tresiba No 45unit( Q1D Tresiba FlexTouch s) FlexTouch U-100 U-100 insulin 100 insulin unit/mL (3 100 mL) unit/mL (3 subcutaneou mL) s pen subcutaneo Inject 45 us pen units every Inject 45 day by units subcutaneou every day s route at by bedtime. subcutaneo us route at bedtime. Vitamin C No 1 Q1D Vitamin C 500 mg 500 mg tablet Take tablet 1 tablet Take 1 every day tablet by oral every day route for by oral 90 days. route for 90 days. ezetimibe No 1 Q1D ezetimibe 10 mg 10 mg tablet Take tablet 1 tablet Take 1 every day tablet by oral every day route for by oral 90 days. route for 90 days. furosemide No furosemide 40 mg 40 mg tablet TAKE tablet 1 TABLET BY TAKE 1 MOUTH DAILY TABLET BY DIRECTED MOUTH DAILY DIRECTED metoclopram No metoclopra tomas 5 mg mide 5 mg tablet take tablet 1 tablet by take 1 oral route tablet by 4 times a oral route day with 4 times a meals & day with bedtime meals & bedtime Tylenol No 2 Q8H Tylenol Arthritis Arthritis Pain 650 mg Pain 650 tablet,exte mg nded tablet,ext release ended Take 2 release tablets Take 2 every 8 tablets hours by every 8 oral route hours by as needed. oral route as needed. Ecotrin Low No 1 Q1D Ecotrin Strength 81 Low mg Strength tablet,ente 81 mg radha coated tablet,ent Take 1 dian tablet coated every day Take 1 by oral tablet route for every day 90 days. by oral route for 90 days. amoxicillin No 1 Q12H amoxicilli 875 n 875 mg-potassiu mg-potassi m um clavulanate clavulanat 125 mg e 125 mg tablet Take tablet 1 tablet Take 1 every 12 tablet hours by every 12 oral route hours by for 7 days. oral route for 7 days. dorzolamide No dorzolamid 22.3 e 22.3 mg-timolol mg-timolol 6.8 mg/mL 6.8 mg/mL eye drops eye drops instill 1 instill 1 gtt ou gtt ou twice a day twice a day losartan 50 No losartan mg tablet 50 mg take 1 tablet tablet by take 1 oral route tablet by twice a day oral route twice a day furosemide No 1 Q1D furosemide 20 mg 20 mg tablet Take tablet 1 tablet Take 1 every day tablet by oral every day route for by oral 90 days. route for 90 days. magnesium No 2 BID magnesium oxide 400 oxide 400 mg (241.3 mg (241.3 mg mg magnesium) magnesium) tablet Take tablet 2 tablets Take 2 twice a day tablets by oral twice a route with day by meals for oral route 30 days. with meals for 30 days. 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 00:00: 00 History of History of Problem Active coronary Coronary 3-10 artery Artery 00:00: bypass Bypass 00 grafting Grafting Gastropares Gastropares Problem Active is due to is Due to 2-13 type 2 Type 2 00:00: diabetes Diabetes 00 mellitus Mellitus Hyperlipide Hyperlipide Problem Active 2014-10 marty marty 0-29 00:00: 00 Obesity Obesity Problem Active 9 00:00: 00 Graves' Graves' Problem Active disease Disease 3- 00:00: 00 Type 2 Type 2 Problem Active diabetes Diabetes -11 mellitus Mellitus 00:00: 00 Essential Essential Problem Active hypertensio Hypertensio 3-11 n n 00:00: 00 History of History of Problem Active hyperthyroi Hyperthyroi 3-11 dism dism 00:00: 00 Bilateral Bilateral Problem Active lower lower extremity extremity edema edema Edema Edema Problem Active Atypical Atypical Problem Active chest pain chest pain Unstable Unstable Problem Active angina angina pectoris pectoris due to due to coronary coronary arterioscle arterioscle rosis rosis Abnormal Abnormal Problem Active nuclear nuclear stress test stress test Dyspnea on Dyspnea on Problem Active exertion exertion 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 artery of [place] heart heart without without angina angina pectoris pectoris Mixed Mixed Problem Active hyperlipide hyperlipide marty marty Hypomagnese Hypomagnese Problem Active marty marty Palpitation Palpitation Problem Active s s Snoring Snoring Problem Active Abnormal Abnormal Problem Active EKG EKG Procedures Procedure Date / Time Performed Performing Clinician Shannan calzada Basic Metabolic Panel(BMP) 2020-06-06 00:00:00 Direct LDL 2020-06-06 00:00:00 Polysomnography 2020-04-06 00:00:00 History of Coronary artery bypass 2019-12-09 00:00:00 graft Cabg 2019-12-09 00:00:00 sudomotor testing of autonomic 2019-05-19 00:00:00 nervous system function (PROC) ELECTROCARDIOGRAM COMPLETE 2019-05-19 00:00:00 lexiscan cardiolite stress test 2019-05-19 00:00:00 (PROC) ELECTROCARDIOGRAM COMPLETE 2018-09-23 00:00:00 CHEST X-RAY 2 VIEWS 2018-09-23 00:00:00 MAMMO, screening, digital, 2018-07-16 00:00:00 bilateral Cataract Surgery 2017-11-04 00:00:00 Total Abdominal Hysterectomy 1996-12-21 00:00:00 Appendectomy 1969-12-21 00:00:00 History of Appendectomy History of section History of Hysterectomy LEG SURGERY PROCEDURE Section Results Test Description Test Time Test Comments Text Results Atomic Results Result Comments Basic Metabolic Panel(BMP) 2020-06-15 13:13:00 Test Item Value Reference Range Comments Glucose (test code = Glucose) 166 mg/dL 74-106 Sodium (test code = Sodium) 137 mmol/L 135-145 Potassium (test code = Potassium) 4.7 mmol/L 3.5-5.3 Chloride (test code = Chloride) 99 mmol/L 98-107 CO2 (test code = CO2) 30 mmol/L 22-30 Creatinine, serum (test code = Creatinine, serum) 0.70 mg/dL 0.10-1.04 Glomerular Filtration Rate (test code = Glomerular Filtration >6 0 >60 Rate) Glomerular Filtration Rate AA (test code = Glomerular >60 >60 Filtration Rate AA) Blood Urea Nitrogen (test code = Blood Urea Nitrogen) 13 mg/dL 7-17 Calcium (test code = Calcium) 9.9 mg/dL 8.4-10.5 Direct [id number] 13:13:00 Test Item Value Reference Range Comments Low Density Lipoprotein (test code = 2089-1) 44 mg/dL 1-1 30 CBC W Auto Differential panel - [id number] 10:56:00 Test Item Value Reference Range Comments WBC (test code = WBC) 9.4 K/uL 4.1-10.9 lym% (test code = lym%) 39.0 % 10.0-58.5 lym# (test code = lym#) 3.7 % 0.6-4.1 mxd# (test code = mxd#) 0.8 % 0.0-1.8 mxd% (test code = mxd%) 9.0 % 0.1-24.0 gran (test code = gran) 4.9 % 2.0-7.8 gran% (test code = gran%) 52.0 % 37.0-92.0 RBC (test code = RBC) 4.41 M/uL 4.20-6.30 HGB (test code = HGB) 11.5 g/dL 14.1-18.1 HCT (test code = HCT) 35.7 % 34.5-53.7 MCV (test code = MCV) 81.0 fL 80.0-97.0 MCH (test code = MCH) 26.1 pg 26.0-32.0 MCHC (test code = MCHC) 32.2 g/dL 31.0-36.0 RDW (test code = RDW) 18.0 % 11.5-14.5 plt (test code = plt) 331 K/uL 140-440 MPV (test code = MPV) 6.0 fL 0.0-99.8 CBC W Auto Differential panel - [id number] 11:09:00 Test Item Value Reference Range Comments WBC (test code = WBC) 8.9 K/uL 4.1-10.9 lym% (test code = lym%) 28.7 % 10.0-58.5 lym# (test code = lym#) 2.6 % 0.6-4.1 mxd# (test code = mxd#) 1.0 % 0.0-1.8 mxd% (test code = mxd%) 11.6 % 0.1-24.0 gran (test code = gran) 5.3 % 2.0-7.8 gran% (test code = gran%) 59.7 % 37.0-92.0 RBC (test code = RBC) 3.61 M/uL 4.20-6.30 HGB (test code = HGB) 9.8 g/dL 14.1-18.1 HCT (test code = HCT) 30.9 % 34.5-53.7 MCV (test code = MCV) 85.5 fL 80.0-97.0 MCH (test code = MCH) 27.1 pg 26.0-32.0 MCHC (test code = MCHC) 31.7 g/dL 31.0-36.0 RDW (test code = RDW) 17.2 % 11.5-14.5 plt (test code = plt) 598 K/uL 140-440 MPV (test code = MPV) 5.9 fL 0.0-99.8 Microalbumin/Creatinine [Mass Ratio] in [id number] 10:00:00 Test Item Value Reference Range Comments Microalbumin (test code = Microalbumin) 150 Creatinine (test code = Creatinine) 300 Ratio (test code = Ratio) 50 lipid panel, [id number] 11:15:47 Test Item Value Reference Range Comments TC (<200 mg/dL) (test code = TC (<200 mg/dL)) 181 mg/dL <2 00 mg/dL HDL (40-60 mg/dL) (test code = HDL (40-60 mg/dL)) 64 mg/dL 40-60 mg/dL trig (<150 mg/dL) (test code = trig (<150 mg/dL)) 77 mg/dL <150 mg/dL LDL (<100 mg/dL) (test code = LDL (<100 mg/dL)) 102 mg/dL <100 non-HDL (<130 mg/dL) (test code = non-HDL (<130 117 mg/dL <130 mg/dL mg/dL)) TC/HDL ratio (4.5 or less) (test code = TC/HDL 2.8 mg/dL 4 .5 or less ratio (4.5 or less)) 10yr CHD risk (test code = 10yr CHD risk) % test code: 697061 (test code = test code: 114399) CBC W Auto Differential panel - [id number] 10:57:00 Test Item Value Reference Range Comments WBC (test code = WBC) 11.3 K/uL 4.1-10.9 lym% (test code = lym%) 33.0 % 10.0-58.5 lym# (test code = lym#) 3.7 % 0.6-4.1 mxd# (test code = mxd#) 0.7 % 0.0-1.8 mxd% (test code = mxd%) 6.0 % 0.1-24.0 gran (test code = gran) 6.9 % 2.0-7.8 gran% (test code = gran%) 61.0 % 37.0-92.0 RBC (test code = RBC) 5.61 M/uL 4.20-6.30 HGB (test code = HGB) 15.0 g/dL 14.1-18.1 HCT (test code = HCT) 47.6 % 34.5-53.7 MCV (test code = MCV) 84.9 fL 80.0-97.0 MCH (test code = MCH) 26.7 pg 26.0-32.0 MCHC (test code = MCHC) 31.5 g/dL 31.0-36.0 RDW (test code = RDW) 15.0 % 11.5-14.5 plt (test code = plt) 144 K/uL 140-440 MPV (test code = MPV) 7.6 fL 0.0-99.8 visual [id number] 10:22:00 Test Item Value Reference Range Comments R Eye Uncorrected (test code = R Eye Uncorrected) 20/80 L Eye Uncorrected (test code = L Eye Uncorrected) 20/63 R Eye Corrected (test code = R Eye Corrected) 20/32 L Eye Corrected (test code = L Eye Corrected) 20/32 EKG [id number] 01:20:35 Test Item Value Reference Range Comments Rate & Rhythm (test code = Rate & Rhythm) SR, HR 85 / min QRS (test code = QRS) 94 ms MS Interval (test code = MS Interval) 178 ms QRS Duration (test code = QRS Duration) 94 ms QT Interval (test code = QT Interval) 360 ms Hemoglobin A1c/Hemoglobin.total in [id number] 14:40:00 Test Item Value Reference Range Comments Hemoglobin A1c/Hemoglobin.total in Blood (test code = 9.9 % 4.2% -6.5 4548-4) CBC W Auto Differential panel - [id number] 14:40:00 Test Item Value Reference Range Comments WBC (test code = WBC) 10.3 K/uL 4.1-10.9 lym% (test code = lym%) 39.0 % 10.0-58.5 lym# (test code = lym#) 4.0 % 0.6-4.1 mxd# (test code = mxd#) 0.6 % 0.0-1.8 mxd% (test code = mxd%) 6.2 % 0.1-24.0 gran (test code = gran) 5.6 % 2.0-7.8 gran% (test code = gran%) 54.8 % 37.0-92.0 RBC (test code = RBC) 4.75 M/uL 4.20-6.30 HGB (test code = HGB) 12.9 g/dL 14.1-18.1 HCT (test code = HCT) 39.6 % 34.5-53.7 MCV (test code = MCV) 83.3 fL 80.0-97.0 MCH (test code = MCH) 27.2 pg 26.0-32.0 MCHC (test code = MCHC) 32.6 g/dL 31.0-36.0 RDW (test code = RDW) 15.4 % 11.5-14.5 plt (test code = plt) 532 K/uL 140-440 MPV (test code = MPV) 6.9 fL 0.0-99.8 CBC W Auto Differential panel - [id number] 08:22:00 Test Item Value Reference Range Comments WBC (test code = WBC) 10.7 K/uL 4.1-10.9 lym% (test code = lym%) 44.4 % 10.0-58.5 lym# (test code = lym#) 4.8 % 0.6-4.1 mxd# (test code = mxd#) 2.0 % 0.0-1.8 mxd% (test code = mxd%) 18.8 % 0.1-24.0 gran (test code = gran) 3.9 % 2.0-7.8 gran% (test code = gran%) 36.8 % 37.0-92.0 RBC (test code = RBC) 4.61 M/uL 4.20-6.30 HGB (test code = HGB) 11.9 g/dL 14.1-18.1 HCT (test code = HCT) 38.1 % 34.5-53.7 MCV (test code = MCV) 82.6 fL 80.0-97.0 MCH (test code = MCH) 25.8 pg 26.0-32.0 MCHC (test code = MCHC) 31.2 g/dL 31.0-36.0 RDW (test code = RDW) 16.5 % 11.5-14.5 plt (test code = plt) 342 K/uL 140-440 MPV (test code = MPV) 7.2 fL 0.0-99.8 EKG [id number] 11:19:00 Test Item Value Reference Range Comments Rate & Rhythm (test code = Rate & Rhythm) SR, 85/min QRS (test code = QRS) 0.6ms MS Interval (test code = MS Interval) 172 QRS Duration (test code = QRS Duration) 92 QT Interval (test code = QT Interval) 342 CBC W Auto Differential panel - [id number] 10:23:00 Test Item Value Reference Range Comments WBC (test code = WBC) 10.1 K/uL 4.1-10.9 lym% (test code = lym%) 36.2 % 10.0-58.5 lym# (test code = lym#) 3.7 % 0.6-4.1 mxd# (test code = mxd#) 1.7 % 0.0-1.8 mxd% (test code = mxd%) 16.6 % 0.1-24.0 gran (test code = gran) 4.8 % 2.0-7.8 gran% (test code = gran%) 47.2 % 37.0-92.0 RBC (test code = RBC) 4.65 M/uL 4.20-6.30 HGB (test code = HGB) 12.3 g/dL 14.1-18.1 HCT (test code = HCT) 38.4 % 34.5-53.7 MCV (test code = MCV) 82.5 fL 80.0-97.0 MCH (test code = MCH) 26.5 pg 26.0-32.0 MCHC (test code = MCHC) 32.0 g/dL 31.0-36.0 RDW (test code = RDW) 16.2 % 11.5-14.5 plt (test code = plt) 325 K/uL 140-440 MPV (test code = MPV) 6.6 fL 0.0-99.8 visual [id number] 13:40:00 Test Item Value Reference Range Comments R Eye Uncorrected (test code = R Eye Uncorrected) 20/70 L Eye Uncorrected (test code = L Eye Uncorrected) 20/70 R Eye Corrected (test code = R Eye Corrected) 20/70 L Eye Corrected (test code = L Eye Corrected) 20/40 Assessments Condition Name Status Diagnosis Date Treating Clinici an Transient cerebral ischemia Active 2020-08-23 10:01:00 Dizziness Active 2020-08-23 09:11:56 Unsteady when walking Active 2020-08-23 09:47:52 Headache Active 2020-08-23 09:48:26 Serous otitis media Active 2020-08-16 12:10:40 Pain of right temporomandibular joint Active 2020-08-16 12:09:27 Administration of influenza vaccine Active 2020-08-16 1 2:19:28 Type 2 diabetes mellitus Active 2020-05-19 08:25:45 Essential hypertension Active 2020-05-19 08:25:47 Hyperlipidemia Active 2020-05-19 08:25:48 Vitamin D deficiency Active 2020-05-19 08:50:29 Type 2 diabetes mellitus Active 2020-03-16 08:49:58 Essential hypertension Active 2020-03-16 09:32:29 Iron deficiency anemia Active 2020-03-16 09:35:19 Type 2 diabetes mellitus Active 2020-02-03 08:23:37 Essential hypertension Active 2020-02-03 08:23:38 Hyperlipidemia Active 2020-02-03 08:23:39 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 Iron deficiency anemia Active 2019-12-28 11:33:10 Bleeding from nose Active 2019-12-28 11:37:12 Follow-up encounter Active 2019-12-21 09:06:18 Coronary arteriosclerosis Active 2019-12-21 10:41:09 Type 2 diabetes mellitus Active 2019-12-21 10:42:15 Dehiscence of surgical wound Active 2019-12-21 10:45:08 Chest pain, unspecified Active 0 Type 2 diabetes mellitus Active 2019-11-25 08:36:23 Essential hypertension Active 2019-11-25 08:36:22 Hyperlipidemia Active 2019-11-25 08:36:21 Gastroparesis with type 2 diabetes Active 2019-11-25 09 :40:59 mellitus Essential hypertension Active Dyspnea on exertion Active Type 2 diabetes mellitus with insulin Active therapy Bilateral lower extremity edema Active Abnormal EKG Active Mixed hyperlipidemia Active Atypical chest pain Active Class 2 severe obesity due to excess Active calories with serious comorbidity and body mass index (BMI) of 35.0 to 35.9 in adult Unstable angina pectoris due to Active coronary arteriosclerosis Dyspnea on exertion Active Type 2 diabetes mellitus with insulin Active therapy Essential hypertension Active Mixed hyperlipidemia Active Abnormal nuclear stress test Active Class 2 severe obesity due to excess Active calories with serious comorbidity and body mass index (BMI) of 36.0 to 36.9 in adult Atherosclerosis of [place] coronary Active artery of [place] heart without angina pectoris Type 2 diabetes mellitus with insulin Active therapy Essential hypertension Active Mixed hyperlipidemia Active S/P CABG x 3 Active Class 1 obesity due to excess calories Active with serious comorbidity and body mass index (BMI) of 33.0 to 33.9 in adult Hypomagnesemia Active Adult health examination Active 2019-09-03 10:00:38 Immunization Active 2019-09-03 10:00:38 Screening for malignant neoplasm of Active 2019-09-03 1 0:00:38 breast Screening for malignant neoplasm of Active 2019-09-03 1 0:00:38 cervix Screening for malignant neoplasm of Active 2019-09-03 1 0:00:38 colon Screening for cardiovascular system Active 2019-09-03 1 0:00:38 disease Type 2 diabetes mellitus Active 2019-09-03 10:21:30 Essential hypertension Active 2019-07-02 09:04:13 Body mass index 30+ - obesity Active 2019-07-02 09:47:2 6 Influenza vaccination Active 2019-07-02 09:51:19 Type 2 diabetes mellitus Active 2019-05-19 14:29:36 Essential hypertension Active 2019-05-19 14:29:37 Hyperlipidemia Active 2019-05-19 14:29:40 Atypical chest pain Active 2019-05-19 15:30:11 History of hyperthyroidism Active 2019-02-01 08:07:19 Body mass index 30+ - obesity Active 2019-02-01 08:38:1 4 Eruption Active 2019-02-01 08:13:45 Seasonal allergic rhinitis Active 2019-02-01 08:35:16 Type 2 diabetes mellitus Active 2019-02-01 08:35:27 Type 2 diabetes mellitus Active 2018-11-04 08:04:32 Essential hypertension Active 2018-11-04 08:04:34 History of hyperthyroidism Active 2018-11-04 08:04:35 Hyperlipidemia Active 2018-11-04 08:07:15 Atypical chest pain Active 2018-09-23 10:14:06 Musculoskeletal chest pain Active 2018-09-23 11:27:19 Lesion of skin of breast Active 2018-09-23 11:29:25 Gastroesophageal reflux disease Active 2018-09-23 11:36 :05 Adult health examination Active 2018-08-31 13:10:13 Immunization Active 2018-08-31 13:10:13 Screening for malignant neoplasm of Active 2018-08-31 1 3:10:13 breast Screening for malignant neoplasm of Active 2018-08-31 1 3:10:13 cervix Screening for malignant neoplasm of Active 2018-08-31 1 3:10:13 colon Screening for cardiovascular system Active 2018-08-31 1 3:10:13 disease Gastroesophageal reflux disease without Active 15:02:52 esophagitis Type 2 diabetes mellitus Active 2018-08-31 15:11:44 Type 2 diabetes mellitus Active 2018-07-16 08:51:17 Abnormal weight gain Active 2018-07-16 10:13:56 Screening for malignant neoplasm of Active 2018-07-16 1 0:14:43 breast Encounters Start End Encounter Admission Attending Care Care Encounter Date/Time Date/Time Type Type Clinicians Facility Department ID 2020-08-23 2020-08-23 [facility] [id number] 00:00:00 00:00:00 SARAY Clark: [facility] [address] [place] [address] , Ph. 2020-08-16 2020-08-16 [facility] [id number] 00:00:00 00:00:00 SARAY Clark: Eula Morton [address] [place] [address] , Ph. 2020-07-13 2020-07-13 NATALIYA Rios [facility] [id number] 11:30:00 11:30:00 t; Evan Mosley MD 2020-06-15 2020-06-15 Appointchelle AN [facility] [id number] 13:15:00 13:15:00 t; [facility] 2020-06-06 2020-06-06 NATALIYA RiosJACE [id number] 08:30:00 08:30:00 t; Evan Mosley MD 2020-05-19 2020-05-19 [facility] [id number] 00:00:00 [facility]:00:00 [facility] [address] [facility] Medical MD: [address] [place] [address] , Ph. 2020-04-06 2020-04-06 [facility] [id number] 14:00:00 14:00:00 t; Evan Mosley MD 2020-04-06 2020-04-06 ELVER RiosJACE [facility] [id number] 10:45:00 10:45:00 t; Evan Mosley MD 2020-03-30 2020-03-30 Appointchelle RAYAJACE [facility] [id number] 09:50:00 09:50:00 t; LIA john, [facility] WB 2020-03-24 2020-03-24 [facility] [id number] 10:00:00 10:00:00 t; Evan Mosley MD 2020-03-16 2020-03-16 [facility] [id number] 00:00:00 00:00:00 [facility] [address] [facility] Medical MD: [address] [place] [address] , Ph. 2020-03-07 2020-03-07 [facility] [id number] 12:50:00 12:50:00 t; LIA john, [facility] WB 2020-03-01 2020-03-01 ELVER RiosBlayne CET [id number] 08:30:00 08:30:00 t; Evan Mosley MD 2020-02-03 2020-02-03 [facility] [id number] 00:00:00 00:00:00 [facility] [address] [facility] Medical MD: [address] [place] [address] , Ph. 2020-02-02 2020-02-02 Brittanimen [facility] C[facility] [id number] 14:15:00 14:15:00 t; Nacho Monge M.D. 2020-02-01 2020-02-01 ELVER RiosJACE CETW [id number] 08:30:00 08:30:00 t; Evan Mosley MD 2020-01-18 2020-01-18 [facility] [id number] 09:45:00 09:45:00 t; Balbir Arteaga PA-C 2020-01-11 2020-01-11 Nacho Zaragoza [facility] [id number] 09:20:25 23:59:59 Nacho Monge 2019-12-28 2019-12-28 [facility] [id number] 00:00:00 00:00:00 [facility] [address] [facility] Medical MD: [address] [place] [address] , Ph. 2019-12-24 2019-12-24 E 1 Aubree Villarreal [facility] [id number] 12:52:12 18:48:00 Aubree Villarreal 2019-12-21 2019-12-21 [facility] [id number] 00:00:00 00:00:00 [facility] [address] [facility] Medical MD: [address] [place] [address] , Ph. 2019-12-06 2019-12-13 I 1 Nacho Monge [facility] [id number] 16:38:09 13:50:00 Nacho Monge 2019-12-06 2019-12-06 Eric Cornell [facility] [id number] 15:00:00 15:00:00 t; Evan Mosley MD 2019-12-06 2019-12-06 [facility] [id number] 09:00:00 09:00:00 t; BASSEM Smith lle, Nuclear 3 2019-12-01 2019-12-01 [facility] [id number] 08:30:00 08:30:00 t; Gill Marin 2019-11-25 2019-11-25 [facility] [id number] 00:00:00 00:00:00 [facility] [address] [facility] Medical MD: [address] [place] [address] , Ph. 2019-11-22 2019-11-22 Eric Cornell [facility] CETW [id number] 09:00:00 09:00:00 tEvan Sales MD 2019-09-03 2019-09-03 [facility] [id number] 00:00:00 00:00:00 [facility] [address], Medical Medical MD: [address] [place] [address] , Ph. 2019-07-02 2019-07-02 [facility] [id number] 00:00:00 00:00:00 [facility] [address], Medical Medical MD: [address] [place] [address] , Ph. 2019-05-19 2019-05-19 [facility] [id number] 00:00:00 00:00:00 [facility] [address], Medical Medical MD: [address] [place] [address] , Ph. 2019-02-01 2019-02-01 [facility] [id number] 00:00:00 00:00:00 [facility] [address], Medical Medical MD: [address] [place] [address] , Ph. 2018-11-04 2018-11-04 [facility] [id number] 00:00:00 00:00:00 [facility] [address], Medical Medical MD: [address] [place] [address] , Ph. 2018-09-23 2018-09-23 [facility] [id number]_ 00:00:00 00:00:00 [facility] [address], Medical Medical MD: [address] [place] [address] , Ph. 2018-08-31 2018-08-31 [facility] [id number] 00:00:00 00:00:00 Parth Forde [address] [facility] Medical MD: [address] [place] [address] , Ph. 2018-07-16 2018-07-16 [facility] [id number] 00:00:00 00:00:00 [facility] Eula [address] [facility] Medical MD: [address] [place] [address] , Ph. Family History Family Member Diagnosis Comments Start Date Stop Date Mother Family history of diabetes mellitus Mother Family history of heart disease Mother Family history of hypertension Mother Family history of lung disease Immunizations Ordered Immunization Filled Immunization Date Status Commen ts Refusal Reason Name Name Influenza, 2020-08-16 Completed injectable, MDCK, 12:00:00 quadrivalent Payers Payer Name Policy Type Policy Number Effective Date Expiration D ate Plan of Treatment Planned Activity Planned Date Details Comments Future Scheduled Test [code = ] Future Scheduled Test [code = ] Future Appointment 2020-09-05 08:45:00 Tierney Clark, [address] [place] [address] , [place] [address] Social History Smoking Status Start Date Stop Date Never smoked tobacco (finding) Vital Signs Vital Name Observation Time Observation Value Comments BP Diastolic 2020-08-23 00:00:00 91 mm[Hg] Height 2020-08-23 00:00:00 65.5 [in_i] BMI (Body Mass Index) 2020-08-23 00:00:00 33.1 kg/m2 BP Systolic 2020-08-23 00:00:00 170 mm[Hg] Body Weight 2020-08-23 00:00:00 202 [lb_av] BP Diastolic 2020-08-16 00:00:00 83 mm[Hg] Height 2020-08-16 00:00:00 65.5 [in_i] BMI (Body Mass Index) 2020-08-16 00:00:00 32.9 kg/m2 BP Systolic 2020-08-16 00:00:00 133 mm[Hg] Body Weight 2020-08-16 00:00:00 200.6 [lb_av] BP Diastolic 2020-05-19 00:00:00 84 mm[Hg] Height 2020-05-19 00:00:00 65.5 [in_i] BMI (Body Mass Index) 2020-05-19 00:00:00 33.3 kg/m2 BP Systolic 2020-05-19 00:00:00 148 mm[Hg] Body Weight 2020-05-19 00:00:00 203 [lb_av] BP Diastolic 2020-03-16 00:00:00 92 mm[Hg] Height 2020-03-16 00:00:00 65.5 [in_i] BMI (Body Mass Index) 2020-03-16 00:00:00 33.6 kg/m2 BP Systolic 2020-03-16 00:00:00 127 mm[Hg] Body Weight 2020-03-16 00:00:00 204.8 [lb_av] BP Diastolic 2020-02-03 00:00:00 87 mm[Hg] Height 2020-02-03 00:00:00 65.5 [in_i] BMI (Body Mass Index) 2020-02-03 00:00:00 33.4 kg/m2 BP Systolic 2020-02-03 00:00:00 130 mm[Hg] Body Weight 2020-02-03 00:00:00 204 [lb_av] BP Diastolic 2019-12-28 00:00:00 61 mm[Hg] Height 2019-12-28 00:00:00 65.5 [in_i] BMI (Body Mass Index) 2019-12-28 00:00:00 34.2 kg/m2 BP Systolic 2019-12-28 00:00:00 115 mm[Hg] Body Weight 2019-12-28 00:00:00 208.4 [lb_av] BP Diastolic 2019-12-21 00:00:00 74 mm[Hg] Height 2019-12-21 00:00:00 65.5 [in_i] BMI (Body Mass Index) 2019-12-21 00:00:00 34.2 kg/m2 BP Systolic 2019-12-21 00:00:00 118 mm[Hg] Body Weight 2019-12-21 00:00:00 208.4 [lb_av] BP Diastolic 2019-11-25 00:00:00 81 mm[Hg] Height 2019-11-25 00:00:00 65.5 [in_i] BMI (Body Mass Index) 2019-11-25 00:00:00 35.4 kg/m2 BP Systolic 2019-11-25 00:00:00 127 mm[Hg] Body Weight 2019-11-25 00:00:00 215.8 [lb_av] BP Diastolic 2019-09-03 00:00:00 82 mm[Hg] Height 2019-09-03 00:00:00 65.5 [in_i] BMI (Body Mass Index) 2019-09-03 00:00:00 34.7 kg/m2 BP Systolic 2019-09-03 00:00:00 126 mm[Hg] Body Weight 2019-09-03 00:00:00 211.8 [lb_av] BP Diastolic 2019-07-02 00:00:00 83 mm[Hg] Height 2019-07-02 00:00:00 65.5 [in_i] BMI (Body Mass Index) 2019-07-02 00:00:00 34.9 kg/m2 BP Systolic 2019-07-02 00:00:00 152 mm[Hg] Body Weight 2019-07-02 00:00:00 213.2 [lb_av] BP Diastolic 2019-05-19 00:00:00 83 mm[Hg] Height 2019-05-19 00:00:00 65.5 [in_i] BMI (Body Mass Index) 2019-05-19 00:00:00 34.8 kg/m2 BP Systolic 2019-05-19 00:00:00 139 mm[Hg] Body Weight 2019-05-19 00:00:00 212.4 [lb_av] BP Diastolic 2019-02-01 00:00:00 77 mm[Hg] Height 2019-02-01 00:00:00 65.5 [in_i] BMI (Body Mass Index) 2019-02-01 00:00:00 34.1 kg/m2 BP Systolic 2019-02-01 00:00:00 120 mm[Hg] Body Weight 2019-02-01 00:00:00 208.2 [lb_av] BP Diastolic 2018-11-04 00:00:00 85 mm[Hg] Height 2018-11-04 00:00:00 65.5 [in_i] BMI (Body Mass Index) 2018-11-04 00:00:00 34.6 kg/m2 BP Systolic 2018-11-04 00:00:00 134 mm[Hg] Body Weight 2018-11-04 00:00:00 211 [lb_av] BP Diastolic 2018-09-23 00:00:00 91 mm[Hg] Height 2018-09-23 00:00:00 65.5 [in_i] BMI (Body Mass Index) 2018-09-23 00:00:00 35 kg/m2 BP Systolic 2018-09-23 00:00:00 155 mm[Hg] Body Weight 2018-09-23 00:00:00 213.4 [lb_av] BP Diastolic 2018-08-31 00:00:00 80 mm[Hg] Height 2018-08-31 00:00:00 65.5 [in_i] BMI (Body Mass Index) 2018-08-31 00:00:00 34.8 kg/m2 BP Systolic 2018-08-31 00:00:00 122 mm[Hg] Body Weight 2018-08-31 00:00:00 212.6 [lb_av] BP Diastolic 2018-07-16 00:00:00 78 mm[Hg] Height 2018-07-16 00:00:00 65.5 [in_i] BMI (Body Mass Index) 2018-07-16 00:00:00 34.7 kg/m2 BP Systolic 2018-07-16 00:00:00 121 mm[Hg] Body Weight 2018-07-16 00:00:00 211.6 [lb_av] Systolic blood pressure 2020-07-13 12:34:00 140 mm[Hg] Diastolic blood pressure 2020-07-13 12:34:00 88 mm[Hg] Systolic blood pressure 2020-07-13 11:32:00 146 mm[Hg] Loca tion: LUE; Position: Sittin g Diastolic blood pressure 2020-07-13 11:32:00 94 mm[Hg] Loc ation: LUE; Position: Sittin g Weight 2020-07-13 11:32:00 201 [lb_av] Body mass index (BMI) 2020-07-13 11:32:00 33.45 kg/m2 [Ratio] Heart Rate 2020-07-13 11:32:00 80 /min O2 SAT 2020-07-13 11:32:00 97 % Systolic blood pressure 2020-06-06 09:03:00 156 mm[Hg] Loca tion: LUE; Position: Sittin g Diastolic blood pressure 2020-06-06 09:03:00 74 mm[Hg] Loc ation: LUE; Position: Sittin g Systolic blood pressure 2020-06-06 08:38:00 162 mm[Hg] Loca tion: LUE; Position: Sittin g Diastolic blood pressure 2020-06-06 08:38:00 86 mm[Hg] Loc ation: LUE; Position: Sittin g Weight 2020-06-06 08:38:00 205.4 [lb_av] Body mass index (BMI) 2020-06-06 08:38:00 34.18 kg/m2 [Ratio] Heart Rate 2020-06-06 08:38:00 78 /min O2 SAT 2020-06-06 08:38:00 99 % Hospital Discharge Instructions 1. Serous otitis media amoxicillin 875 mg-potassium clavulanate 125 mg tablet 2. Pain of right temporomandibular joint CBC w/ auto diff temporomandibular disorder: care instructions 3. Administration of influenza vaccine Flucelvax Quad 60 mcg (15 mcg x 4)/0.5 mL intramuscular susp influenza (flu) vaccine: care instructions Discussion Note Patient verbalized understandingand agreement with recommended care plan. All questions and concerns were addressed and answered adequately. Follow up visit will address apeNameDatesDetailsInstructions not documented NameDatesDetailsInstructions not documented1. Type 2 diabetes mellitus type 2 diabetes: care instructions HbA1c (hemoglobin A1c), blood2. Essential hypertension low sodium diet (2,000 milligram): care instructions dash diet: care instructions high blood pressure: care instructions 3. Hyperlipidemia high cholesterol: care instructions 4. Vitamin D deficiency vitamin D, 25-hydroxy, total, serum Discussion Note Patient verbalized understanding and agreement with recommended care plan. All questions and concerns wereaddressed and answered adequately. Follow up visit will address ape 1. Type 2 diabetes mellitus Kombiglyze XR 2.5 mg-1,000 mg tablet,extended release type 2 diabetes: care instructions diabetes basics of type 2 diabetes care 2. Essential hypertension CMP, serum or plasma dash diet: care instructions low sodium diet (2,000 milligram): care instructions high blood pressure: care instructions 3. Iron deficiency anemia iron deficiency anemia: care instructions CBC w/ auto diff Discussion Note Patient verbalized understanding and agreement with recommended care plan. All questions and concerns were addressed and answered adequately. Follow up visit will address dm, htn, hld1. Type 2 diabetes mellitus learning about type 2 diabetes type 2 diabetes: care instructions HbA1c (hemoglobin A1c), blood 2. Essential hypertension CMP, serum or plasma dash diet:care instructions low sodium diet (2,000 milligram): care instructions high blood pressure: care instructions 3. Hyperlipidemia high cholesterol: care instructions lipid panel, blood Discussion Note Patient verbalized understanding and agreement with recommended care plan. All questions and concerns were addressed and answered adequately. Follow up visit will address dm,1. Type 2 diabetes mellitus type 2 diabetes: care instructions microalbumin/creatinine, massratio, urine 2. Essential hypertension dash diet: care instructions low sodium diet (2,000 milligram): care instructions high blood pressure: care instructions 3. Hyperlipidemia high cho lesterol: care instructions 4. Gastroparesis with type 2 diabetes mellitus gastroparesis: care instructions Discussion Note Patient verbalized understanding and agreement with recommended care plan. All questions and concerns were addressed and answered adequately. Follow up visit will address hypothyroidism, htn, dm1. Adult health examination well visit, women 50 to 65: care instructions wellness education visual acuity eating healthy foods: care instructions walking for exercise: care instructions preventing falls: care instructions preventing outdoor falls: care instructions 2. Immunization immunization: what you need to know pneumococcal polysaccharide vaccine: what you need to know Tdap (tetanus, diphtheria, pertussis) vaccine: what you need to know influenza (flu) vaccine (inactivated or recombinant): what you need to know shingles vaccine: what you need toknow 3. Screening for malignant neoplasm of breast mammogram screening patient instructions learning about breast cancer screening 4. Screening for malignant neoplasm of cervix gynecology referral pelvic exam: care instructions 5. Screening for malignant neoplasm of colon colon cancer screening: care instructions colonoscopy referral 6. Screening for cardiovascular system disease A healthy heart: care instructions taking aspirin and other antiplatelets safely: care ins tructions reducing heart attack risk with daily medicine: care instructions 7. Type 2 diabetes mellitus CMP, serum or plasma HbA1c (hemoglobin A1c), blood CBC w/ auto diff lipid panel, blood microalbumin/creatinine, mass ratio, urine Discussion Note Patient verbalized understanding and agreement with recommended care plan. All questions and concerns were addressed and answeredadequately. Follow up visit will address htn, dm, hld1. Essential hypertension CMP, serum or plasma dash diet: care instructions low sodium diet (2,000 milligram): care instructions high blood pressure: care instructions 2. Body mass index 30+ - obesity body mass index: care instructions learning about healthy weight 3. Influenzavaccination influenza (flu) vaccine: care instructions Discussion Note Patient verbalized understanding and agreement with recommended care plan. All questions and concerns were addressed and answered adequately. Follow up visit will address ape1. Type 2 diabetes mellitus type 2 diabetes: care instructions HbA1c (hemoglobin A1c), blood sudomotor testing of autonomic nervous system function (PROC) 2. Essential hypertension CBC w/ auto diff low sodium diet (2,000 milligram): care instructions dash diet: care instructions high blood pressure: care instructions 3. Hyperlipidemia high cholesterol: care instructions 4. Atypical chest pain electrocardiogram lexiscan cardiolite stress test (PROC) Discussion Note Patient verbalized understanding and agreement with recommended care plan. All questions and concerns were addressed and answered adequately. Follow up visit will address chest pain, htn, wgt mgt1. History of hyperthyroidism hyperthyroidism: care instructions 2. Body mass index 30+ - obesity body mass index: care instructions learning about healthy weight 3. Eruption clotrimazole-betamethasone 1 %- 0.05 % topical cream 4. Seasonal allergic rhinitis fluticasone propionate 50 mcg/actuation nasal spray,suspension 5. Type 2 diabetes mellitus FreeStyle Brenden 14 Day [place] FreeStyle Brenden 14 Day Sensor kit Discussion Note Patient verbalized understanding and agreement with recommended care plan. All questions and concerns were addressed and answered adequately. Follow up visit will address dm, htn, hld1. Type 2 diabetes mellitus learning about type 2 diabetes type 2 diabetes: care instructions HbA1c (hemoglobin A1c), blood 2. Essential hypertension high blood pressure: care instructions learning about high blood pressure CMP, serum or plasma CBC w/ auto diff 3. History of hyperthyroidism T3, free, serum or plasma T4, free, serum TSH, serum or plasma thyroperoxidase Ab, serum 4. Hyperlipidemia high cholesterol: care instructions lipid panel, blood Discussion Note Patient verbalized understanding and agreement with recommended care plan. All questions and concerns were addressed and answered adequately. Follow up visit will address hypothyroidism, wgt mgt1. Adult health examination well visit, women 50 to 65: care instructions wellness education visual acuity eating healthy foods: care instructions walking for exercise: care instruct ions preventing falls: care instructions 2. Immunization immunization: what you need to know pneumococcal polysaccharide vaccine: what you need to know Tdap (tetanus, diphtheria, pertussis) vaccine: what you need to know 3. Screening for malignant neoplasm of breast mammogram screening patient instructions learning about breast cancer screening 4. Screening for malignant neoplasm of cervix pelvic exam: care instructions 5. Screening for malignant neoplasm of colon colon cancer screening: care instructions 6. Screening for cardiovascular system disease A healthy heart: care instructions taking aspirin and other antiplatelets safely: care instructions reducing heart attack risk with daily medicine: care instructions 7. Gastroesophageal reflux disease without esophagitis ranitidine 300 mg tablet gastroesophageal reflux disease (GERD): care instructions indigestion (dyspepsia or heartburn): care instructions 8. Type 2 diabetes mellitus type 2 diabetes: care instructions diabetes foot health: care instructions Discussion Note Patient verbalized understanding and agreement with recommended care plan. All questions and concerns were addressed and answered adequately. Follow up visit will address dm, hypothyroidism, htn1. Type 2 diabetes mellitus learning about type 2 diabetes type 2 diabetes: care instructions microalbumin:creatinine ratio, urine 2. Abnormal weight gain abnormal weight gain: care instructions 3. Screening for malignant neoplasm of breast learning about breast cancer screening MAMMO, screening, digital, bilateral Discussion Note Patient verbalized understanding and agreementwith recommended care plan. All questions and concerns were addressed and answered adequately. Follow up visit will address ape
== END 2020-08-23 17:26 | disposition home or self-care (01) ==
LOC: ER 10:24
DX: R42 Dizziness and giddiness (principal); I10 Essential (primary) hypertension; H66.90 Otitis media, unspecified, unspecified ear; R51.9 Headache, unspecified; R20.0 Anesthesia of skin; Z95.1 Presence of aortocoronary bypass graft; E11.9 Type 2 diabetes mellitus without complications; Z79.4 Long term (current) use of insulin; Z79.899 Other long term (current) drug therapy; Z79.82 Long term (current) use of aspirin; Z88.6 Allergy status to analgesic agent; Z88.5 Allergy status to narcotic agent; Z91.040 Latex allergy status
CPT/HCPCS: 36415; 70450; 70551; 71046; 80053; 81001; 83735; 84484; 85025; 93005; 93010; 99285

== ENCOUNTER → 2020-08-24 | Outpatient (CLI) | payer BC ==
--- NOTE | 2020-08-24 10:25 | WOMENS IMAGING REPORT ---
EXAM DESCRIPTION: 3D SCREENING MAMMO BILAT IMAGES COMPLETED DATE/TIME: 08/24/2020 9:50 am REASON FOR STUDY: ROUTINE BILATERAL SCREENING;Z12.31 Z12.31 ENCNTR SCREEN MAMMOGRAM FOR MALIGNANT N EOPLASM OF JESSICA COMPARISON: Priors back to 2010 EXAM PARAMETERS: Views: Standard craniocaudal and mediolateral oblique views of each breast recorded using digital acquisition and breast tomosynthesis. Read with the assistance of CAD. .[facility] - [facility] Version 9.2 LIMITATIONS: None. FINDINGS: No suspicious masses, suspicious calcifications or architectural distortion. No areas of c oncern. IMPRESSION: NEGATIVE MAMMOGRAM. BIRADS 1. BREAST DENSITY: b. There are scattered areas of fibroglandular density. BIRAD: ASSESSMENT: 1 NEGATIVE RECOMMENDATION: ROUTINE SCREENING COMMENT: The patient has been notified of the results by letter per MQSA requirements. Additional no tification policies are in place for contacting patient with suspicious or incomplete findings. Quality ID #[id number]: The [employer] recommends an annual screening mammogram for women aged 40 years or over. This facility utilizes a reminder system to ensure that all patients receive reminder letters, and/or direct phone calls for appointments. This includes reminders for routine scr eening mammograms, diagnostic mammograms, or other Breast Imaging Interventions when appropriate. Th is patient will be placed in the appropriate reminder system. TECHNICAL DOCUMENTATION: FINDING NUMBER: (1) ASSESSMENT: (1) JOB ID: [id number] 2010 [employer]- All Rights Reserved Reading location - IP/workstation name: [email or web address]
--- OUTSIDE RECORDS SUMMARY | 2020-08-25 15:19 | XMS REPORT ---
:1960 [facility] [address] [place] [address] Care Team Providers Name Role Phone Justicecinthia [...] MD Start : 0Active Ezetimibe 2020-0 No Evan 1 Ezetimibe 10 MG Oral [...] Ergocalcif rol 1.25 MG 2-10 el 1.25 (44777 UT) 00:00: MG (59930 Oral 00 UT) Oral Capsule Capsule TAKE [...] Atheroscler Problem Active osis of osis of match-[place] match[place] coronary coronary artery of artery of [place] match-e[place] heart heart without without angina angina pectoris [...] code = Calcium) 9.9 mg/dL 8.4-10.5 Direct [id number] 13:13:00 Test Item Value Reference Range Comments Low Density Lipoprotein (test code = 2089-1) 44 mg/dL 1-1 30 CBC W Auto Differential panel - [id number] 10:56:00 Test Item Value Reference Range Comments [...] 0.0-99.8 CBC W Auto Differential panel - [id number] 11:09:00 Test Item Value Reference Range Comments [...] 5.9 fL 0.0-99.8 Microalbumin/Creatinine [Mass Ratio] in [id number] 10:00:00 Test Item Value Reference Range Comments Microalbumin (test code = Microalbumin) 150 Creatinine (test code = Creatinine) 300 Ratio (test code = Ratio) 50 lipid panel, [id number] 11:15:47 Test Item Value Reference Range Comments [...] = 10yr CHD risk) % test code: 887917 (test code = test code: 305982) CBC W Auto Differential panel - [id number] 10:57:00 Test Item Value Reference Range Comments [...] code = MPV) 7.6 fL 0.0-99.8 visual [id number] 10:22:00 Test Item Value Reference Range Comments R Eye Uncorrected (test code = R Eye Uncorrected) 20/80 L Eye Uncorrected (test code = L Eye Uncorrected) 20/63 R Eye Corrected (test code = R Eye Corrected) 20/32 L Eye Corrected (test code = L Eye Corrected) 20/32 EKG [id number] 01:20:35 Test Item Value Reference Range Comments Rate & Rhythm (test code = Rate & Rhythm) SR, HR 85 / min QRS (test code = QRS) 94 ms AZ Interval (test code = AZ Interval) 178 ms QRS Duration (test code = QRS Duration) 94 ms QT Interval (test code = QT Interval) 360 ms Hemoglobin A1c/Hemoglobin.total in [id number] 14:40:00 Test Item Value Reference Range Comments Hemoglobin A1c/Hemoglobin.total in Blood (test code = 9.9 % 4.2% -6.5 4548-4) CBC W Auto Differential panel - [id number] 14:40:00 Test Item Value Reference Range Comments [...] 0.0-99.8 CBC W Auto Differential panel - [id number] 08:22:00 Test Item Value Reference Range Comments [...] code = MPV) 7.2 fL 0.0-99.8 EKG [id number] 11:19:00 Test Item Value Reference Range Comments Rate & Rhythm (test code = Rate & Rhythm) SR, 85/min QRS (test code = QRS) 0.6ms AZ Interval (test code = AZ Interval) 172 QRS Duration (test code = QRS Duration) 92 QT Interval (test code = QT Interval) 342 CBC W Auto Differential panel - [id number] 10:23:00 Test Item Value Reference Range Comments [...] code = MPV) 6.6 fL 0.0-99.8 visual [id number] 13:40:00 Test Item Value Reference Range Comments [...] Active 2020-02-03 08:23:39 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 2020-08-16 2020-08-16 [facility] [id number] 00:00:00 00:00:00 SARAY Clark: Eula [place] [address] [place] [address] , Ph. 2020-07-13 2020-07-13 NATALIAY Rios [facility] [id number] 11:30:00 11:30:00 t; Evan Mosley MD 2020-06-15 2020-06-15 Appoint[facility] AN [facility] [id number] 13:15:00 13:15:00 t; [facility] 2020-06-06 2020-06-06 NATALIYA RiosJACE [id number] 08:30:00 08:30:00 t; Evan Mosley MD 2020-05-19 2020-05-19 [facility] [id number] 00:00:00 [facility]:00[facility] [address] [facility] MD: [address] [place] [address] , Ph. 2020-04-06 2020-04-06 [facility] [id number] 14:00:00 14:00:00 t; Evan Mosley MD 2020-04-06 2020-04-06 ELVER RiosJACE [facility] [id number] 10:45:00 10:45:00 t; Evan Mosley MD 2020-03-30 2020-03-30 Appoint[facility]le RAYAJACE [facility] [id number] 09:50:00 09:50:00 t; LIA john, [facility] WB 2020-03-24 2020-03-24 [facility] [id number] 10:00:00 10:00:00 t; Evan Mosley MD 2020-03-16 2020-03-16 [facility] [id number] 00:00:00 00:00:00 [facility] [address] [facility] Medical MD: [address] [place] [address] , Ph. 2020-03-07 2020-03-07 [facility] [id number] 12:50:00 12:50:00 t; LIA john, [facility] WB 2020-03-01 2020-03-01 ELVER RiosBlayne CET [id number] 08:30:00 08:30:00 t; Evan Mosley MD 2020-02-03 2020-02-03 [facility] [id number] 00:00:00 00:00:00 [facility] [address] [facility] Medical MD: [address] [place] [address] , Ph. 2020-02-02 2020-02-02 [facility]en [facility] CET [id number] 14:15:00 14:15:00 t; Nacho Monge M.D. 2020-02-01 2020-02-01 ELVER RiosJACE CETW [id number] 22 08:30:00 08:30:00 t; Evan Mosley MD 2020-01-18 2020-01-18 [facility] [id number] 09:45:00 09:45:00 t; Balbir Arteaga PA-C 2020-01-11 2020-01-11 Nacho Zaragoza REPLACED BY [facility] [id number] 09:20:25 23:59:59 Nacho Monge 2019-12-28 2019-12-28 [facility] [id number] 00:00:00 00:00:00 [facility] [address] [facility] Medical MD: [address] [place] [address] , Ph. 2019-12-24 2019-12-24 E 1 Aubree Villarreal REPLACED BY [facility] 200 [id number] 12:52:12 18:48:00 Aubree Villarreal 2019-12-21 2019-12-21 [facility] [id number] 00:00:00 00:00:00 [facility] [address] [facility] Medical MD: [address] [place] [address] , Ph. 2019-12-06 2019-12-13 I 1 Nacho Monge REPLACED BY [facility] [id number] 16:38:09 13:50:00 Nacho Monge 2019-12-06 2019-12-06 Eric Cornell [facility] [id number] 15:00:00 15:00:00 t; Evan Mosley MD 2019-12-06 2019-12-06 [facility] [id number] 09:00:00 09:00:00 t; BASSEM Smith lle, Nuclear 3 2019-12-01 2019-12-01 [facility] [id number] 08:30:00 08:30:00 t; Gill Marin 2019-11-25 2019-11-25 [facility] [id number] 00:00:00 00:00:00 [facility] [address] [facility] Medical MD: [address] [place] [address] , Ph. 2019-11-22 2019-11-22 Eric Cornell [facility] CETW [id number] 09:00:00 09:00:00 tEvan Sales MD 2019-09-03 2019-09-03 [facility] [id number]_ 00:00:00 00:00:00 [facility] [address] [facility] Medical MD: [address] [place] [address] , Ph. 2019-07-02 2019-07-02 [facility] 5832_ 00:00:00 00:00:00 [facility] [address] Medical Medical MD: [address] [place] [address] , Ph. 2019-05-19 2019-05-19 [facility] [id number] 00:00:00 00:00:00 [facility] [address] Medical Medical MD: [address] [place] [address] , Ph. 2019-02-01 2019-02-01 [facility] [id number] 00:00:00 00:00:00 [facility] [address] [facility] Medical MD: [address] [place] [address] , Ph. 2018-11-04 2018-11-04 [facility] [id number]_ 00:00:00 00:00:00 [facility] [address] [facility] Medical MD: [address] [place] [address] , Ph. 2018-09-23 2018-09-23 [facility] [id number]_ 00:00:00 00:00:00 [facility] [address] [facility] Medical MD: [address] [place] [address] , Ph. 2018-08-31 2018-08-31 [facility] [id number] 00:00:00 00:00:00 Parth Forde [address] [facility] Medical MD: [address] [place] [address] , Ph. 2018-07-16 2018-07-16 [facility] [id number] 00:00:00 00:00:00 [facility] Eula [address] [facility] Medical MD: [address] [place] [address] , Ph. Family History Family Member Diagnosis [...] ] Future Appointment 2020-09-05 08:45:00 Tierney Clark, [address] [place] [address] , [place] [address] Social History Smoking Status Start Date Stop [...] 2 diabetes mellitus [employer] [place] 14 Day [place] [employer]den 14 Day Sensor kit Discussion [...]
== END ==
LOC: WI 10:34
PROVIDERS: ATTEND Internal Medicine Geriatric Medicine
DX: Z12.31 Encounter for screening mammogram for malignant neoplasm of breast (principal)
CPT/HCPCS: 77063; 77067